=== PATIENT | female | born 1990 | race African-American/Black ===

== ENCOUNTER 2023-07-30 21:27 | Emergency (ER) | payer OTHER, SELFPAY ==
[2023-07-30 22:22] VITALS: BP 117/76; PULSE 73; RESP 16; TEMP 37.3; O2SAT 100; BMI 30.2
== END 2023-07-31 01:12 | disposition left against medical advice (07) ==
LOC: HO.ED 07-31 01:12
PROVIDERS: Emergency Provider Emergency Medicine; PCP Pediatrics
DX: Z04.1 Encounter for examination and observation following transport accident (principal); R51.9 Headache, unspecified; M54.50 Low back pain, unspecified
CPT/HCPCS: 99281

== ENCOUNTER 2023-08-01 11:47 | Emergency (ER) | payer OTHER, SELFPAY ==
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
[2023-08-01 11:59] VITALS: BP 142/83; PULSE 55; RESP 18; TEMP 36.9; O2SAT 99; BMI 29.8
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
[2023-08-01] MEDS: Acetaminophen 325 MG TABLET 975 MG PO (19:55)
[2023-08-01 22:16] VITALS: BP 125/80; PULSE 64; RESP 20; TEMP 37.2; O2SAT 99
[2023-08-01 23:08] VITALS: BP 125/80; PULSE 64; RESP 20; TEMP 37.2; O2SAT 99
== END 2023-08-01 23:08 | disposition home or self-care (01) ==
PROVIDERS: Emergency Provider Emergency Medicine Emergency Medical Services
DX: S39.92XA Unspecified injury of lower back, initial encounter (principal); R51.9 Headache, unspecified; M54.2 Cervicalgia; V43.62XA Car passenger injured in collision with other type car in traffic accident, initial encounter; Y93.9 Activity, unspecified; Y92.410 Unspecified street and highway as the place of occurrence of the external cause; Y99.8 Other external cause status
CPT/HCPCS: 70450; 72100; 72125; 99283; 99284

== ENCOUNTER 2023-12-15 10:46 | Outpatient (REF) | payer OTHER, SELFPAY ==
[2023-12-15 15:40] LABS: Bacterial Vaginosis PCR POSITIVE (Negative); Candida Group PCR NOT DETECTED (Not Detect); Candida glab krusei PCR NOT DETECTED (Not Detect); Trichomonas vaginalis PCR NOT DETECTED (Not Detect)
== END 2023-12-15 10:47 | disposition home or self-care (01) ==
LOC: HO.LAB 10:46
PROVIDERS: Visit Provider Physician Assistant
DX: R39.15 Urgency of urination (principal); N89.8 Other specified noninflammatory disorders of vagina
CPT/HCPCS: 0352U; 87086; 99212

== ENCOUNTER 2023-12-15 10:46 | Outpatient (AMB) | payer OTHER, SELFPAY ==
--- NOTE | 2023-12-15 10:52 | MHC.OFFWIV ---
Intake Vital Signs 12/15/23 10:57 Height 5 ft 1 in Weight 160 lb BMI 30.2 BP 112/78 Blood Pressure Location Rt brachial Position Sitting Pulse 76 Pulse Source Pulse Oximeter Temp 98.7 F Temp Source Oral Pulse Oximetry (%) 98 Oxygen Delivery Method Room Air Intake Visit Reasons: EP-UTI Intake Note: Patient here for burning when urinating, foul smell of urine, slight discharge which has been going on for a few days. Is last menstrual period known: Yes Last menstrual period: 12/01/23 Allergies peach [PEACHES] Allergy (Unknown, Verified 12/15/23 11:00) RASH Penicillins [PENICILLINS] Allergy (Unknown, Verified 12/15/23 11:00) YEAST INFECTION Do you need a note to return to daycare/school/sports/work: No HPI HPI Comments History of Present Illness Details Patient is a 33-year-old female complaining of multiple issues. She states she has foul-smelling urine, increased urgency of urination, white discharge and right sided flank pain that kept her awake last night. She tells me her menstrual cycle ended on December 04 and that is when her symptoms started. She tells me that she has not been sexually active since June and when she was sexually active, she always used a condom. She tells me she is probably only had sexual relations 3 or 4 times this year. She denies burning with urination, fevers, history of kidney stones, blood in her urine, chunky discharge or foul smelling discharge. [facility] Female Reproductive History Menstrual Date of last menstrual period: 12/01/23 Review of Systems Const All systems reviewed & are unremarkable except as noted in HPI and below Physical Exam Vital Signs: Last Vital Signs Temp 98.7 F 12/15/23 10:57 Pulse 76 12/15/23 10:57 BP 112/78 12/15/23 10:57 Pulse Ox 98 12/15/23 10:57 Oxygen Delivery Method Room Air 12/15/23 10:57 BMI result Body Mass Index 30.2 Const General: cooperative, healthy appearing, comfortable, no acute distress and well developed Orientation/consciousness: patient oriented x3 Limitations: no limitations HEENT Head: Yes normal to inspection Ears: hearing grossly normal bilaterally General nose exam: Normal external nose present Face and sinus: Yes normal facial exam Eyes General: appearance normal, both eyes and all related structures Neck Neck: Yes normal visual inspection and Yes full ROM Resp Effort & Inspection: normal respiratory effort and able to speak in complete sentences Skin General skin exam: no rashes or lesions noted Neuro General: patient oriented x3 Extrem General: Yes normal to inspection Assessment & Plan Assessment & Plan (1) Urgency of urination: Code(s): R39.15 - Urgency of urination Plan: UA negative for infection but positive for blood, with right sided flank pain, + CVA tenderness right side, recommended patient go to the emergency room for a kidney stone rule out. Called [facility] ED with expect. With vaginal discharge, sent bacterial vaginosis panel and a urine culture, we will hold off on prescribing antibiotics until both of these result. (2) Vaginal discharge: Code(s): N89.8 - Other specified noninflammatory disorders of vagina Plan: see above Plan See above Orders: Orders Urine Culture Today R39.15 - Urgency of urination Bacterial Vaginosis Panel Today N89.8 - Other specified noninflammatory disorders of vagina Coding Level of Care Code Est Pt Level 5 (07182) Diagnoses Urgency of urination R39.15 Vaginal discharge N89.8
[2023-12-15 10:57] VITALS: BP 112/78; PULSE 76; TEMP 37.1; O2SAT 98; BMI 30.2
== END 2023-12-15 11:45 | disposition home or self-care (01) ==
PROVIDERS: Visit Provider Physician Assistant
DX: R39.15 Urgency of urination (principal); N89.8 Other specified noninflammatory disorders of vagina

== ENCOUNTER 2024-10-11 13:42 | Outpatient (AMB) | payer OTHER, SELFPAY ==
--- OUTSIDE RECORDS SUMMARY | 2024-10-09 11:03 | XMS_ITS | Encounter Summary ---
Author Organization [facility] Address [address] [facility] [address] [place] [phone] Phone Care Team Providers Care Image Scientist Name Role Phone Giovani Leblanc MD Primary Care Provider [phone] Reason for Visit * Reason Comments Back Pain Shortness of Breath Encounter Details Date Type Department Care Team ([facility] Contact Info) Description 10/09/2024 11:03 AM EDT - 10/09/2024 1:23 PM EDT Emergency [facility] [address] [place] [address] Manoj Gomez MD [address] [place] [address] [email or web address] Discharge Disposition: Home or Self Care Social History Tobacco Use Types Packs/Day Years Used Date Smoking Tobacco: Never Assessed Education Answer Date Recorded Are you interested in more education? Not on john e 10/09/2024 Are you concerned about learning? Not on file 10/09/2024 No 10/09/2024 No 10/09/2024 Food Answer Date Recorded Within the past 6 months we worried whether our food would run out before we got money to buy more. Never True 10/09/2024 Within the past 6 months the food we bought just didn't last and we didn't have enough money to get more. Never True Residential Stability Answer Date Recor ded What is your housing situation today? I have jesse sing 10/09/2024 How many times have you move d in the past 12 months? Zero (I did not move) 10/09/2024 Paying for Meds Answer Date Recorded Do you have trouble paying for medicines? No 10/09/2024 Paying Utility Bills Answer Date Record ed Do you have trouble paying your heating or elect ricity bill? No 10/09/2024 Transportation Answer Date Recorded Has the lack of transportati on kept you from medical appointments or from getting medications? No 10/09/2024 Digital Access Answer Date Recorded No 10/09/2024 Yes 10/09/2024 Do you have reliable internet access at home? Ye s 10/09/2024 Do you have a device (e.g., phone, tablet, computer) with a working camera? Yes 10/09/2024 Intimate Partner Violence Answer Date R ecorded Are you denied basic needs s uch as food, clothing, or medical care? No 10/09/2024 In the past 12 months have y ou been in a relationship with a person who hurts, threatens, or tries to control you? No 10/09/2024 Are you denied basic needs s uch as food, clothing, or medical care? No 10/09/2024 In the past 12 months have y ou been in a relationship with a person who hurts, threatens, or tries to control you? No 10/09/2024 Comments Unknown Sex and Gender Information Value Date Recorded Sex Assigned at Not on file Legal Sex Female 9:42 AM EDT Gender Identity Not on file Sexual Orientation Not on file documented as of this encounter Last Filed Vital Signs Vital Sign Reading Time Taken Comments Blood Pressure 117/78 10/09/2024 1:11 PM EDT Pulse 61 10/09/2024 1:11 PM EDT Temperature 36.2 C (97.2 F) 10/09/2024 1:11 PM EDT Respiratory Rate 18 10/09/2024 1:11 PM EDT Oxygen Saturation 100% 10/09/2024 1:11 PM EDT Inhaled Oxygen Concentration - - Weight 64 kg (141 lb) 10/09/2024 11:16 AM EDT Height 152.4 cm (5') 10/09/2024 11:16 AM EDT Body Mass Index 27.54 10/09/2024 11:16 AM EDT documented in this encounter Functional Status * Calculated C-SSRS Risk Score (Lifetime/Recent) Answer Date of Assessment Author No Risk Indicated 10/09/2024 11:20 AM EDT Lainey Roberson RN * [place] Suicide Severity Rating Scale (Screener/Recent Self-Report) Question Answer Date of Assessment Author 1. Wish to be (Past 1 Month) No 11:20 AM EDT Lainey Roberson RN 2. Non-Specific Active Suici shelley Thoughts (Past 1 Month) No 10/09/2024 11:20 AM EDT Isai Roberson RN 6. Suicidal Behavior (Lifetime) No 11:20 AM EDT Lainey Roberson RN documented as of this encounter Discharge Instructions * Discharge Instructions* Manoj Gomez MD - 10/09/2024 1:08 PM EDT Please schedule a primary care appointment as soon as possible. You may take 600 mg of ibuprofen every 6 hours for your pain. Your covid swab is still pending. You may check this in the patient portal. If you have new or worsening symptoms, or if you become concerned for any reason, go immediately to the emergency department. * Attachments The following attachments cannot be sent through Care Everywhere. * Chest Pain (Turkish) documented in this encounter Procedure Notes * Manoj Gomez MD - 10/09/2024 11:31 AM EDTAssociated Order(s): Bedside Ultrasound Procedure Bedside Ultrasound Date/Time: 10/09/2024 11:31 AM Performed by: Manoj Gomez MD Authorized by: Manoj Gomez MD Exam Type: Cardiac Transthoracic Echocardiogram Cardiac Transthoracic Echocardiogram Exam Findings & Impression: Indications: patient with chest pain Views: apical four, parasternal long, parasternal short and subxiphoid Pericardial Effusion: the pericardial space was visualized and was negative for a pericardial effusion LV Systolic Function: the heart was visualized with normal LV systolic function Overall Impression: negative Images: Images Saved: Yes Accession Number: [id number] documented in this encounter ED Notes * Lainey Roberson RN - 10/09/2024 1:23 PM EDT ED Discharge Nursing Note Pt verbalized understanding of discharge instructions and will follow up with pcp as discussed. Pt ambulated from the ED with an even steady gait, breathing equal and unlabored, NAD. * Lainey Roberson RN - 10/09/2024 11:13 AM EDT Pt BIBA from urgent care with sharp left sided pain beginning under left axilla and radiating to left chest and into left back. Pt states it began last night and has gotten progressively worse. Pt states pain in worse with movement of left arm and states she feels like she cannot take a deep breath. Pt states she feels SOB at this time because I can't breathe in deeply without severe pain . Pt seen at and sent to ED. Pt received 1000 mg IV tylenol from EMS with some relief. Pt reports 5/10 pain following meds. * Manoj Gomez MD - 10/09/2024 11:02 AM EDT Chief Complaint Chief Complaint Patient presents with Back Pain Shortness of Breath History of Present Illness The patient, Cameron Bruner,is a 34 y.o. female who presents for evaluation of Back Pain and Shortness of Breath 34 yo f, no significant pmh, here for evaluation of left sided chest pain. Exacerbated by movement and position. No fever. Pt does note mild headache. Pain started yesterday. Unless otherwise specified, I have reviewed and agree with the triage and nursing notes. ROS A ten point review of systems was negative except what was noted in the HPI. Review of Systems Past Medical History No past medical history on file. Past Surgical History No past surgical history on file. Home Medications Prior to Admission medications Not on File Allergies Allergies Allergen Reactions [place] Flavor Penicillins Pt states she gets yeast infections and significant discomfort Social and Family History Social History Tobacco Use Smoking status: Not on file Smokeless tobacco: Not on file Substance Use Topics Alcohol use: Not on file Social History Substance and Sexual Activity Drug Use Not on file No family history on file. Physical Exam Vital Signs: ED Triage Vitals [10/09/24 1116] Encounter Vitals Group BP 120/78 Systolic BP Percentile Diastolic BP Percentile Heart Rate 62 Respiratory Rate 18 Temperature 36.7 ??C (98.1 ??F) Temp Source Temporal SpO2 100 % Weight 141 lb Height 5' Head Circumference Peak Flow Pain Score Pain Loc Pain Education Exclude from Growth Chart Physical Exam Gen: well developed, no acute distress Head: Normocephalic, atraumatic. Eyes: PERRLA, EOMI. Vision grossly intact Ears: External NL, hearing grossly intact. Oropharynx: moist mucus membranes. Normal appearance Neck: Supple, Trachea midline Lungs: Clear to auscultation b/l. No wheezes, rales or rhonchi Cardiac: RRR, no murmurs, rubs or gallops. Abd: Soft, non-tender, non-distended. Back: Non-tender. No CVA tenderness Extr: NL appearance, NL Rom. No calf tenderness. Negative emeli's sign. Neuro: AAOx3, NL strength, NL sensation Skin: NL appearance, no rash or lesions Laboratory Testing Results for orders placed or performed during the hospital encounter of 10/09/24 COVID Pandemic Respiratory Viral Order (PRO) Specimen: Nasopharyngeal swab; Other Result Value Ref Range Test Ordered Rapid COVID has been ordered Specimen Source/Description NASAL SARS-CoV 2 (COVID-19) PCR Not Detected Not Detected Troponin Specimen: Blood Result Value Ref Range Troponin-T, HS Gen5 <6 0 - 9 ng/L NT-proBNP Specimen: Blood Result Value Ref Range NT-PROBNP <36 0 - 125 pg/mL Basic metabolic panel Specimen: Blood Result Value Ref Range SODIUM 139 133 - 146 mmol/L CHLORIDE 104 96 - 108 mmol/L POTASSIUM 4.1 3.3 - 5.1 mmol/L CO2 22 21 - 35 mmol/L BUN 8 6 - 19 mg/dL CREATININE 0.70 0.5 - 1.5 mg/dL GLUCOSE 92 70 - 99 mg/dL CALCIUM 9.6 8.4 - 10.3 mg/dL EGFR 115 >59 mL/min/1.73m2 ANION GAP 17 10 - 20 mmol/L CBC and differential Specimen: Blood Result Value Ref Range WBC 7.25 4.00 - 11.00 K/uL RBC 3.88 (L) 4.00 - 5.20 M/uL HGB 11.7 (L) 12.0 - 16.0 g/dL HCT 35.6 (L) 36.0 - 46.0 % PLT 253 150 - 450 K/uL MCV 91.8 80.0 - 100.0 fL MCH 30.2 27.0 - 31.0 pg MCHC 32.9 32.0 - 36.0 g/dL RDW 13.1 11.5 - 14.5 % MPV 10.0 8.4 - 12.0 fL NRBC 0.00 0.00 /100 WBCs ABSOLUTE NRBC 0.00 0.00 K/uL DIFF METHOD Auto NEUTS 69.1 48.0 - 76.0 % LYMPHS 21.0 18.0 - 41.0 % MONOS 7.2 4.0 - 11.0 % EOS 1.8 0.0 - 5.0 % BASOS 0.6 0.0 - 1.5 % Granulocytes, immature (%) 0.3 0.0 - 0.9 % ABSOLUTE NEUTS 5.02 1.92 - 7.60 K/uL ABSOLUTE LYMPHS 1.52 0.72 - 4.10 K/uL ABSOLUTE MONOS 0.52 0.16 - 1.10 K/uL ABSOLUTE EOS 0.13 0.00 - 0.50 K/uL ABSOLUTE BASOS 0.04 0.00 - 0.15 K/uL Granulocytes, immature 0.02 0.00 - 0.09 K/uL Radiology Testing XR Chest Final Result No acute abnormality. Bedside Ultrasound Final Result ED Medication from 10/09/2024 1102 to 10/09/2024 1438 Date/Time Order Dose Route Action Action by Comments 10/09/2024 1144 EDT ketorolac (TORADOL) injection 15 mg 15 mg Intravenous Given Lainey Roberson, HOWARD-- MDM Assessment and Plan: 34 yo f with chest pain. PERC negative. Not typical for acs. EKG non-ischemic. Trop is undetectable. Covid sent. US negative for pericardial effusion. Pt feeling much better with toradol. Encouraged close pcp follow up. Pt discharged in stable condition. Category 2 and 3: Independent Interpretation of Tests, Consideration of Tests, or External Discussion of Results: Labs: Laboratory studies were interpreted. ECG: EKG studies were independently interpreted. Rate: 60 Rhythm: sinus rhythm T Wave Inversions: No ST Depressions: No ST Elevations: No Other Finding(s): No prior for comparison Clinical Impressions as of 10/09/24 1438 Chest pain, unspecified type Critical Care Time: 0 minutes Clinical Impression Diagnosis Description Comment Final diagnosis Chest pain, unspecified type Chest pain, unspecified type -- Disposition: Home Manoj Gomez MD 10/09/24 1438 documented in this encounter Plan of Treatment Not on file documented as of this encounter Procedures Procedure Name Priority Date/Time Associated Diagnosis Comments COVID PANDEMIC RESPIRATORY VIRAL ORDER (PRO) STAT 10/09/2024 12:16 PM EDT CBC AND DIFFERENTIAL STAT 10/09/2024 12:06 PM EDT TROPONIN STAT 10/09/2024 12:06 PM EDT NT-PROBNP STAT 10/09/2024 12:06 PM EDT BASIC METABOLIC PANEL STAT 10/09/2024 12:06 PM EDT XR CHEST PA AND LATERAL 2 VIEWS STAT 10/09/2024 11:54 AM EDT ECG 12-LEAD STAT 10/09/2024 11:39 AM EDT US BEDSIDE Routine 10/09/2024 11:31 AM EDT documented in this encounter Results * COVID Pandemic Respiratory Viral Order (PRO) (10/09/2024 12:16 PM EDT) Test Ordered Rapid COVID has been ordered [facility] Specimen Source/Description NASAL [facility] SARS-CoV 2 (COVID-19) PCR Not Detected Not Detected [facility] Comment: SARS-CoV-2 not detected Negative results do not preclude SARS-CoV-2 infection and should not be used as the sole basis for patient management decisions. Negative results must be combined with clinical observations, patient history, and epidemiological information. Other (Nasopharyngeal swab) 10/09/2024 12:16 PM EDT 10/09/2024 1:11 PM EDT Manoj Gomez MD BODY FLUI DS AND STOOLS ORDERABLES Edited Result - Final Performing Organization Address [facility]/ZIP Co de Phone Number [address] [address] * Troponin (10/09/2024 12:06 PM EDT) Troponin-T, HS Gen5 <6 0 - 9 ng/L [facility] Blood 10/09/2024 12:0 6 PM EDT 10/09/2024 12:19 PM EDT us Manoj Gomez MD LAB BLOOD ORDERAB LES Final Result Performing Organization Address [facility]/ZIP Co de Phone Number [address] [address] * NT-proBNP (10/09/2024 12:06 PM EDT) NT-PROBNP <36 0 - 125 pg/mL [facility] Blood 10/09/2024 12:0 6 PM EDT 10/09/2024 12:19 PM EDT Manoj Gomez MD LAB BLOOD ORDERAB LES Final Result Performing Organization Address [facility]/ZIP Co de Phone Number [address] [address] * Basic metabolic panel (10/09/2024 12:06 PM EDT) SODIUM 139 133 - 146 mmol/L [facility] CHLORIDE 104 96 - 108 mmol/L [facility] POTASSIUM 4.1 3.3 - 5.1 mmol/L [facility] CO2 22 21 - 35 mmol/L [facility] BUN 8 6 - 19 mg/dL [facility] CREATININE 0.70 0.5 - 1.5 mg/dL [facility] GLUCOSE 92 70 - 99 mg/dL [facility] CALCIUM 9.6 8.4 - 10.3 mg/dL [facility] EGFR 115 >59 mL/min/1.7 3m2 [facility] Comment:Estimated glomerular filtration rate calculated using the CKD-EPI refit equation. ANION GAP 17 10 - 20 mmol/L [facility] Blood 10/09/2024 12:0 6 PM EDT 10/09/2024 12:19 PM EDT us Manoj Gomez MD LAB BLOOD ORDERAB LES Final Result Performing Organization Address City/State/[facility] Co de Phone Number [address] [address] * (ABNORMAL) CBC and differential (10/09/2024 12:06 PM EDT) WBC 7.25 4.00 - 11.00 K/uL [facility] RBC 3.88(L) 4.00 - 5.20 M/uL [facility] HGB 11.7(L) 12.0 - 16.0 g/dL [facility] HCT 35.6(L) 36.0 - 46.0 % [facility] PLT 253 150 - 450 K/uL [facility] MCV 91.8 80.0 - 100.0 [facility] MCH 30.2 27.0 - 31.0 pg [facility] MCHC 32.9 32.0 - 36.0 g/dL [facility] RDW 13.1 11.5 - 14.5 % [facility] MPV 10.0 8.4 - 12.0 [facility] NRBC 0.00 0.00 /100 WBCs [facility] ABSOLUTE NRBC 0.00 0.00 K/uL [facility] DIFF METHOD Auto [facility] NEUTS 69.1 48.0 - 76.0 % [facility] LYMPHS 21.0 18.0 - 41.0 % [facility] MONOS 7.2 4.0 - 11.0 % [facility] EOS 1.8 0.0 - 5.0 % [facility] BASOS 0.6 0.0 - 1.5 % [facility] Granulocytes, immature (%) 0.3 0.0 - 0.9 % [facility] ABSOLUTE NEUTS 5.02 1.92 - 7.60 K/uL [facility] ABSOLUTE LYMPHS 1.52 0.72 - 4.10 K/uL [facility] ABSOLUTE MONOS 0.52 0.16 - 1.10 K/uL [facility] ABSOLUTE EOS 0.13 0.00 - 0.50 K/uL [facility] ABSOLUTE BASOS 0.04 0.00 - 0.15 K/uL [facility] Granulocytes, immature 0.02 0.00 - 0.09 K/uL [facility] Blood 10/09/2024 12:0 6 PM EDT 10/09/2024 12:19 PM EDT us Manoj Gomez MD LAB BLOOD ORDERAB LES Final Result Performing Organization Address City/State/[facility] Co de Phone Number [address] [address] * XR CHEST PA AND LATERAL 2 VIEWS (10/09/2024 11:54 AM EDT) Anatomical Region Laterality Modality Chest Computed Radiogr aphy 10/09/2024 12:0 9 PM EDT Impressions 10/09/2024 12:10 PM EDT No acute abnormality. Narrative 10/09/2024 12:10 PM EDT XR CHEST PA AND LATERAL 2 VIEWS Referring clinician's provided indication for this examination in Epic: Dyspnea (Shortness of Breath) COMPARISON: None FINDINGS: Devices/Tubes/Lines: None. Lungs: No focal consolidation or pulmonary edema. Pleura: No pleural effusion or pneumothorax. Heart/Mediastinum: Normal heart and mediastinum. Bones/Soft Tissues: No significant abnormality. Procedure Note Heath Tucker Abhishek Santacruz [facility] - 10/09/2024 XR CHEST PA AND LATERAL 2 VIEWS Referring clinician's provided indication for this examination in Epic:Dyspnea (Shortness of Breath) COMPARISON: None FINDINGS: Devices/Tubes/Lines: None. Lungs: No focal consolidation or pulmonary edema. Pleura: No pleural effusion or pneumothorax. Heart/Mediastinum: Normal heart and mediastinum. Bones/Soft Tissues: No significant abnormality. IMPRESSION: No acute abnormality. us Manoj Gomez MD IMG XR CHEST F inal Result * ECG 12-LEAD (10/09/2024 11:39 AM EDT) Ventricular Rate EKG/MIN 60 BPM [facility] Atrial Rate 60 BPM [facility] NM Interval 132 ms [facility] QRS Duration 98 ms [facility] QT Interval 404 ms [facility] QTC Interval 404 ms [facility] P Reserve 57 degrees [facility] R Wave Reserve -18 degrees [facility] T Wave Reserve 25 degrees [facility] 10/09/2024 11:3 9 AM EDT 10/10/2024 11:50 AM EDT Narrative [facility] - 10/10/2024 11:50 AM EDT Normal sinus rhythm with sinus arrhythmia T wave abnormality, consider lateral ischemia Abnormal ECG No previous ECGs available Confirmed by Aime Tsai ([id number]) on 10/10/2024 11:50:54 AM us Manoj Gomez MD ECG ORDERABLES F inal Result [facility] * US BEDSIDE (10/09/2024 11:31 AM EDT) Anatomical Region Laterality Modality Ultrasound Narrative 10/09/2024 11:31 AM EDT Manoj Gomez MD 10/09/2024 1:09 PM Bedside Ultrasound Date/Time: 10/09/2024 11:31 AM Performed by: Manoj Gomez MD Authorized by: Manoj Gomez MD Exam Type: Cardiac Transthoracic Echocardiogram Cardiac Transthoracic Echocardiogram Exam Findings & Impression: Indications: patient with chest pain Views: apical four, parasternal long, parasternal short and subxiphoid Pericardial Effusion: the pericardial space was visualized and was negative for a pericardial effusion LV Systolic Function: the heart was visualized with normal LV systolic function Overall Impression: negative Images: Images Saved: Yes Accession Number: [id number] Manoj Gomez MD IMG POINT OF CARE EXAMS Final Result documented in this encounter Visit Diagnoses Diagnosis Chest pain, unspecified type- Primary documented in this encounter Administered Medications Inactive Administered Medications - up to 3 most recent administrations Medication Order MAR Action Action Date Dose Rate Site ketorolac (TORADOL) injection 15 mg 15 mg, Intravenous, Once, On Mon10/09/24 at 1145, For 1 dose Given 10/09/2024 11:44 AM EDT 15 mg sodium chloride (NS) 0.9 % syringe flush 3 mL 3 mL, Intravenous, As needed, line care, Starting on Mon10/09/24 at 1120, Per Institutional IV Line Policy. documented in this encounter Active and Recently Administered Medications Times are shown in EDT. Scheduled Medication Order 10/07/2024 10/08/2024 10/09/2024 ketorolac (TORADOL) injection 15 mg (COMPLETED) 15 mg, Intravenous, Once, On Mon10/09/24 at 1145, For 1 dose 1144 (Given - Provid er: Lainey Roberson RN) PRN Medication Order 10/07/2024 10/08/2024 10/09/2024 sodium chloride (NS) 0.9 % syringe flush 3 mL 3 mL, Intravenous, As needed, line care, Starting on Mon10/09/24 at 1120, Per Institutional IV Line Policy. documented in this encounter Additional Health Concerns Infection Onset Date Last Indicated Resolved Time CoV-Risk 10/09/2024 10/09/2024 documented as of this encounter Care Teams Image Scientist Relationship Specialty Start Date End Date Giovani Leblanc MD [address] [place] [address] [place] [phone] (work) PCP - General Internal Medicine 10/09/24 documented as of this encounter Additional Source Comments The information contained in this document represents components of the legal health record. It is not the complete legal health record.[facility]
--- OUTSIDE RECORDS SUMMARY | 2024-10-11 13:45 | XMS_ITS ---
Author Name [facility] Organization Unknown Care Team Organization Name Specialty Phone Email Start Date End Da te [facility] Primary Care 12/28/2021 10/09/19 24
--- OUTSIDE RECORDS SUMMARY | 2024-10-11 13:46 | XMS_ITS | Patient Health Record ---
Author Organization Sae Roberson [facility] Address [address] [id number] [place], [place] [id number] Care Team Providers Care Binding Dyer Name Role Phone Crystal Craft Unavailable [phone] Allergies Allergen (clinical drug ingredient) Drug/Non Drug Allergy documented on EMR Reaction Allergy Type Onset Date Status Information temporarily unavailable peaches rash Drug Allergy Active Reason For Referral No Information Medications Medication SIG (Take, Route, Frequency, Duration) Notes Start Date End Date Status MetroGel-Vaginal 0.75 % 1 application at bedtime Vaginal Once a day; Duration: 5 day(s) 03/01/2017 Not-Taking Diflucan 150 MG 1 tablet Orally once ; Duration: 1 dose 03/01/2017 Not-Taking Flagyl 500 mg 4 tablets Orally onc e; Duration: 1 dose 03/10/2017 Not-Taking Flagyl 500 MG 1 tablet Orally twic e a day; Duration: 7 days Not-Taking Diflucan 150 MG 1 tablet Orally Once a day; Duration: 1 dose 04/21/2015 Not-Taking NuvaRing 0.12-0.015 MG/24HR [address] for 3 weeks, then remove. After 7 day break, replace with a new ring Vaginal as directed; Duration: 30 day(s) 05/04/2010 Not-Taking Ferrous Sulfate 325 (65 Fe) MG 1 tablet Orally 3 times a day; Duration: 90 days Active 28-0.8 MG as directed Orally o nce a day; Duration: 90 days Active Erythromycin 5 MG/GM 1 application Ophth almic TID CARLITO; Duration: 10 day(s) 01/15/2018 Not-Taking Cleocin 2 % 1 applicatorful at bedtime Vaginal Once a day; Duration: 3 day(s) 10/25/2017 Not-Taki ng Amoxicillin 500 mg 1 tablet Orally ever y 8 hours Not-Taking Social History Tobacco Use: Social History Observation Description Date Details (start date - stop date) Former Smoker NA - NA Sex Assigned At : Social History Observation Description Sex Assigned At Female Smoking Question Answer Notes Are you a: former smoker How long has it been since you last smoked? 1-5 years Alcohol Screen Question Answer Notes Did you have a drink containing alcohol in the p ast year? No Points 0 Interpretation Negative Sexual History Question Answer Notes Sexually active in the past 12 months Yes With: Vaginal Prevention and/or STI Protection Metho d No Type of sexual activity Condoms STD History Yes Chlamydia No GC No Syphilis No Herpes No Other Yes Last UNPROTECTED sexual activity 05/2017 Section Notes: + smoker, occasional alcohol , + marijuana use + smoker, occasional alcohol , + marijuana use + smoker, occasional alcohol , + marijuana use + smoker, occasional alcohol , + marijuana use + smoker, occasional alcohol , + marijuana use + smoker, occasional alcohol , + marijuana use no T/A/D. + smoker, occasional alcohol , + marijuana use + smoker, occasional alcohol , + marijuana use + smoker, occasional alcohol , + marijuana use + smoker, occasional alcohol , + marijuana use + smoker, occasional alcohol , + marijuana use + smoker, occasional alcohol , + marijuana use + smoker, occasional alcohol , + marijuana use + smoker, occasional alcohol , + marijuana use + smoker, occasional alcohol , + marijuana use Plan Of Treatment Pending Test Test Name Order Date US (OB) 2ND/3RD TRIMESTER 12/27/2017 Cystic Fibrosis Profile 10/09/2017 Strep Gp B GAYLA+Rflx 02/27/2018 Insurance Providers Payer Name Payer Address Payer Phone Subscriber Number Group Number Insured Name Patient Relationship to Insured Coverage Start Date Coverage End Date Amilcar ANGEL [facility] [address] [place] [address] [id number] Cameron Bruner Self - patient is the insured Medicaid Wrap [address] [place] [address] [id number] Cameron Bruner Self - patient is the insured Medicaid [address] [place] [phone] [id number] Cameron Bruner Self - patient is the insured Medical (General) History Medical History History ICD Code No significant PMHx Surgical History Surgery Date(Month/Year) section 2009 laparoscopic salpingectomy (right ) for an ectopic 08/2013 suction D&C x 3 for ETOP Hospitalization History Reason Date(Month/Year) c-sec 2009 as above.
[2024-10-11 13:48] VITALS: BP 110/64; PULSE 60; O2SAT 99; BMI 25.9
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
== END 2024-10-11 14:55 | disposition home or self-care (01) ==
LOC: HO.HMCH 13:43
PROVIDERS: PCP Internal Medicine; Visit Provider Internal Medicine
DX: Z00.00 Encounter for general adult medical examination without abnormal findings (principal); H53.8 Other visual disturbances; R07.89 Other chest pain; M54.6 Pain in thoracic spine; K59.00 Constipation, unspecified; R63.0 Anorexia; Z12.4 Encounter for screening for malignant neoplasm of cervix

== ENCOUNTER → 2024-10-11 13:42 | Outpatient (BNVA) | payer OTHER, SELFPAY | PROVIDERS: Visit Provider Internal Medicine | DX: Z00.00 Encounter for general adult medical examination without abnormal findings (principal); H53.8 Other visual disturbances; R07.89 Other chest pain; M54.6 Pain in thoracic spine; K59.00 Constipation, unspecified; R63.0 Anorexia | CPT/HCPCS: 96127; 99385 ==

== ENCOUNTER 2024-10-17 08:27 | Outpatient (REF) | payer OTHER, SELFPAY ==
[2024-10-17 08:46] LABS: MANUAL DIFF FLAG NO
[2024-10-17 09:04] LABS: Hematocrit 35.3 % (37.0-47.0); Hemoglobin 11.5 g/dl (12.0-16.0); Imm Gran Abs Auto 0.03 X10*3/uL (0.00-0.03); Imm Gran Pct Auto 0.5 % (0.0-0.4); Lymphocytes Absolute Auto 1.8 X10*3/uL (1.2-4.9); Mean Corpuscular HGB Conc 32.6 g/dl (31.0-35.0); Mean Corpuscular Hemoglobin 29.9 pg (27.0-33.0); Mean Corpuscular Volume 91.7 fL (80.0-98.0); NRBC Abs Auto 0.000 X10*3/uL (0.0-0.012); NRBC Pct Auto 0.0 /100WBC (0.0-0.2); Platelet Count 298 X10*3/uL (160-400); Red Blood Count 3.85 X10*6/uL (4.20-5.50); White Blood Count 6.6 X10*3/uL (4.8-10.8)
--- OUTSIDE RECORDS SUMMARY | 2024-10-17 09:05 | XMS_ITS | Clinical Summary ---
Author Organization [facility] Address [address] [facility] [address] [place] [address] Phone Care Team Providers Care Garment Steamer Name Role Phone Giovani Leblanc MD Primary Care Provider [phone] Allergies Active Allergy Reactions Criticality Noted Date Comments Catron Flavor 05/27/2021 Penicillins Low 10/09/2024 Pt states she gets yeast infections and significant discomfort Medications No known medications Encounters Date Type Department Care Team Description 10/09/2024 11:35 AM EDT Ancillary Procedure [facility], [address] [address] Manoj Gomez MD 10/09/2024 11:03 AM EDT - 10/09/2024 1:23 PM EDT Emergency [facility] [address] [place] [address] Manoj Gomez MD Discharge Disposition: Home or Self Care 10/09/2024 9:50 AM EDT Office Visit [facility] at [address] [address] Sandra Krishnan NP Chest pain, unspecified type (Primary Dx) from Last 3 Months Social History Tobacco Use Types Packs/Day Years [...] your housing situation today? I have jesse mcclelland 10/09/2024 How many times have you move [...] on file Sexual Orientation Not on file Last Filed Vital Signs Vital Sign Reading [...] Mass Index 27.54 10/09/2024 11:16 AM EDT Plan of Treatment Health Maintenance Due Date Last Done Comments Adult Td,Tdap Booster 1988 DEPRESSION SCREENING 2000 SMOKING Hx and SMOKELESS TOB ACCO SCREENING 2001 HEPATITIS C SCREENING 2006 HIV ONE-TIME SCREENING (18-6 5 YEARS) 2006 PAP SMEAR 2009 COVID-19 VACCINE ( - 2023-2 5 season) 2023 SCREENING FOR DIABETES 10/10/2027 10/09/2024 HEPATITIS A VACCINES Aged Out No long er eligible based on patient's age to complete this topic HIB VACCINES Aged Out No longer eligi ble based on patient's age to complete this topic MENINGOCOCCAL VACCINES (ACWY) Aged Out No longer eligible based on patient's age to complete this topic MENINGOCOCCAL VACCINES (B) Aged Out N o longer eligible based on patient's age to complete this topic PNEUMOCOCCAL VACCINES (0-49 years) Aged Out No longer eligible based on patient's age to complete this topic Medical Devices Not on file Procedures Procedure Name Priority Date/Time Associated Diagnosis Comments COVID PANDEMIC RESPIRATORY VIRAL ORDER (PRO) STAT 10/09/2024 12:16 PM EDT TROPONIN STAT 10/09/2024 12:06 PM EDT NT-PROBNP STAT 10/09/2024 12:06 PM EDT BASIC METABOLIC PANEL STAT 10/09/2024 12:06 PM EDT CBC AND DIFFERENTIAL STAT 10/09/2024 12:06 PM EDT XR CHEST PA AND LATERAL 2 VIEWS STAT 10/09/2024 11:54 AM EDT ECG 12-LEAD STAT 10/09/2024 11:39 AM EDT US BEDSIDE Routine 10/09/2024 11:31 AM EDT from Last 3 Months Results * COVID Pandemic Respiratory Viral Order (PRO) (10/09/2024 12:16 PM EDT) Test Ordered Rapid COVID has been ordered [facility] Specimen Source/Description NASAL [facility] SARS-CoV 2 (COVID-19) PCR Not Detected Not Detected [facility] Comment: SARS-CoV-2 not detected Negative results do not preclude SARS-CoV-2 infection and should not be used as the sole basis for patient management decisions. Negative results must be combined with clinical observations, patient history, and epidemiological information. Other (Nasopharyngeal swab) 10/09/2024 12:16 PM EDT 10/09/2024 1:11 PM EDT Manoj Gomez MD BODY FLUI DS AND STOOLS ORDERABLES Edited Result - Final [address] [address] * (ABNORMAL) CBC and differential (10/09/2024 12:06 PM EDT) WBC 7.25 4.00 - 11.00 K/uL [facility] RBC 3.88(L) 4.00 - 5.20 M/uL [facility] HGB 11.7(L) 12.0 - 16.0 g/dL [facility] HCT 35.6(L) 36.0 - 46.0 % [facility] PLT 253 150 - 450 K/uL [facility] MCV 91.8 80.0 - 100.0 [facility] MCH 30.2 27.0 - 31.0 pg [facility] MCHC 32.9 32.0 - 36.0 g/dL [facility] RDW 13.1 11.5 - 14.5 % [facility] MPV 10.0 8.4 - 12.0 [facility] NRBC 0.00 0.00 /100 WBCs [facility] ABSOLUTE NRBC 0.00 0.00 K/uL [facility] DIFF METHOD Auto [facility] NEUTS 69.1 48.0 - 76.0 % [facility] LYMPHS 21.0 18.0 - 41.0 % [facility] MONOS 7.2 4.0 - 11.0 % [facility] EOS 1.8 0.0 - 5.0 % [facility] BASOS 0.6 0.0 - 1.5 % [facility] Granulocytes, immature (%) 0.3 0.0 - 0.9 % [facility] ABSOLUTE NEUTS 5.02 1.92 - 7.60 K/uL [facility] ABSOLUTE LYMPHS 1.52 0.72 - 4.10 K/uL [facility] ABSOLUTE MONOS 0.52 0.16 - 1.10 K/uL [facility] ABSOLUTE EOS 0.13 0.00 - 0.50 K/uL [facility] ABSOLUTE BASOS 0.04 0.00 - 0.15 K/uL [facility] Granulocytes, immature 0.02 0.00 - 0.09 K/uL [facility] Blood 10/09/2024 12:0 6 PM EDT 10/09/2024 12:19 PM EDT us Manoj Gomez MD LAB BLOOD ORDERAB LES Final Result [address] [address] * Troponin (10/09/2024 12:06 PM EDT) Troponin-T, HS Gen5 <6 0 - 9 ng/L [facility] Blood 10/09/2024 12:0 6 PM EDT 10/09/2024 12:19 PM EDT us Manoj Gomez MD LAB BLOOD ORDERAB LES Final Result [address] [address] * NT-proBNP (10/09/2024 12:06 PM EDT) NT-PROBNP <36 0 - 125 pg/mL [facility] Blood 10/09/2024 12:0 6 PM EDT 10/09/2024 12:19 PM EDT Manoj Gomez MD LAB BLOOD ORDERAB LES Final Result Performing Organization Address [facility] Co de Phone Number [address] [address] * Basic metabolic panel (10/09/2024 12:06 PM EDT) SODIUM 139 133 - 146 mmol/L [facility] CHLORIDE 104 96 - 108 mmol/L [facility] POTASSIUM 4.1 3.3 - 5.1 mmol/L [facility] CO2 22 21 - 35 mmol/L [facility] BUN 8 6 - 19 mg/dL [facility] CREATININE 0.70 0.5 - 1.5 mg/dL [facility] GLUCOSE 92 70 - 99 mg/dL [facility] CALCIUM 9.6 8.4 - 10.3 mg/dL [facility] EGFR 115 >59 mL/min/1.7 3m2 [facility] Comment:Estimated glomerular filtration rate calculated using the CKD-EPI refit equation. ANION GAP 17 10 - 20 mmol/L [facility] Blood 10/09/2024 12:0 6 PM EDT 10/09/2024 12:19 PM EDT Manoj Gomez MD LAB BLOOD ORDERAB LES Final Result Performing Organization Address City/[facility]/ZIP Co de Phone Number [address] [address] * XR CHEST PA AND LATERAL 2 VIEWS (10/09/2024 11:54 AM EDT) Anatomical Region Laterality Modality Chest Computed Radiogr aphy 10/09/2024 12:0 9 PM EDT Impressions 10/09/2024 12:10 PM EDT No acute abnormality. Narrative 10/09/2024 12:10 PM EDT XR CHEST PA AND LATERAL 2 VIEWS Referring clinician's provided indication for this examination in [facility]: Dyspnea (Shortness of Breath) COMPARISON: None FINDINGS: Devices/Tubes/Lines: None. Lungs: No focal consolidation or pulmonary edema. Pleura: No pleural effusion or pneumothorax. Heart/Mediastinum: Normal heart and mediastinum. Bones/Soft Tissues: No significant abnormality. Procedure Note [facility] - 10/09/2024 XR CHEST PA AND LATERAL 2 VIEWS Referring clinician's provided indication for this examination in [facility]:Dyspnea (Shortness of Breath) COMPARISON: None FINDINGS: Devices/Tubes/Lines: None. Lungs: No focal consolidation or pulmonary edema. Pleura: No pleural effusion or pneumothorax. Heart/Mediastinum: Normal heart and mediastinum. Bones/Soft Tissues: No significant abnormality. IMPRESSION: No acute abnormality. us Manoj Gomez MD IMG XR CHEST F inal Result * ECG 12-LEAD (10/09/2024 11:39 AM EDT) Ventricular Rate EKG/MIN 60 BPM [facility] Atrial Rate 60 BPM [facility] MN Interval 132 ms [facility] QRS Duration 98 ms [facility] QT Interval 404 ms [facility] QTC Interval 404 ms [facility] P [place] 57 degrees [facility] R Wave [place] -18 degrees [facility] T Wave [place] 25 degrees [facility] 10/09/2024 11:3 9 AM [...] negative Images: Images Saved: Yes Accession Number: [id number] Manoj Gomez MD IMG POINT OF CARE EXAMS Final Result from Last 3 Months Additional Health Concerns Infection Onset Date Last Indicated CoV-Risk 10/09/2024 10/09/[address] [place] [address] [address] [place] [address] [facility] [place] [address] [place] [address] ACO [facility] ACO Care Teams Garment Steamer Relationship Specialty Start Date End Date Giovani Leblanc MD [address] [place] [address] [place] [address] PCP - General Internal Medicine 10/09/24 Additional Source Comments The information contained in this document represents components of the legal health record. It is not the complete legal health record.[facility]
--- OUTSIDE RECORDS SUMMARY | 2024-10-17 09:05 | XMS_ITS | Patient Health Record ---
Author Organization [facility] Address [address] [id number] [place], [place] [id number] Care Team Providers Care Dental Office Receptionist Name Role Phone Crystal Craft Unavailable [phone] Allergies Allergen (clinical drug ingredient) Drug/Non Drug [...] Start Date Coverage End Date [facility]ilcar [facility] [place] [place] [address] [place] [address] [phone] [id number] Cameron Bruner Self - patient is the insured Medicaid Wrap [address] [place] [address] [id number] Cameron Bruner Self - patient is the insured Medicaid [address] [place] [phone] [id number] Cameron Bruner Self - patient is the insured Medical (General) History Medical History History ICD Code No significant PMHx Surgical History Surgery Date(Month/Year) section 2009 laparoscopic salpingectomy (right ) for an ectopic 08/2013 suction D&C x 3 for ETOP Hospitalization History Reason Date(Month/Year) c-sec 2009 as above.
[2024-10-17 09:28] LABS: Appearance Urine Clear; Glucose Urine UA Negative (Negative); PH 5.5 (5.0-9.0); Specific Gravity - Urine 1.025 (1.005-1.025); UMIC TRIGGER UACC YES
[2024-10-17 09:33] LABS: Alanine Aminotransferase 13 U/L (0-31); Albumin Level 4.6 g/dL (3.5-5.0); Alkaline Phosphatase 51 U/L (39-117); Anion Gap 12 (12-20); Aspartate Amino Transferase 27 U/L (5-31); Blood Urea Nitrogen 11 mg/dL (9-16); Calcium 9.3 mg/dL (8.4-10.2); Carbon Dioxide 25 mmol/L (22-29); Chloride 106 mmol/L (96-108); Cholesterol 220 mg/dL (<200); Estimated Glomerular Filt Rate > 60; HDL Cholesterol 54 mg/dL (>40); Potassium 3.7 mmol/L (3.3-5.1); Sodium 139 mmol/L (135-145); Total Protein 7.9 g/dL (6.5-8.0); Triglycerides 78 mg/dL (<150)
[2024-10-23 11:59] LABS: Anti Nuclear Antibody Screen NEGATIVE (NEGATIVE)
== END 2024-10-17 08:28 | disposition home or self-care (01) ==
LOC: HO.LAB 08:27
PROVIDERS: PCP Internal Medicine; Visit Provider Internal Medicine
DX: R07.89 Other chest pain (principal); E78.00 Pure hypercholesterolemia, unspecified; D64.9 Anemia, unspecified; M54.6 Pain in thoracic spine; M25.50 Pain in unspecified joint; R30.0 Dysuria
CPT/HCPCS: 36415; 80053; 80061; 81001; 84443; 85025; 85652; 86038; 86140; 86431

== ENCOUNTER 2024-10-30 11:49 | Outpatient (REF) | payer OTHER, SELFPAY ==
[2024-10-31 08:10] LABS: HBc Num1 0.10 S/CO (0.00-0.79); HIV Num 1 0.06 S/CO (0.00-0.99); ~HepC Num1 0.11 S/CO (0.00-0.79); ~Hepatitis C Antibody Nonreactive (Nonreactive)
[2024-10-31 08:24] LABS: Syphilis Screen Nonreactive (Nonreactive)
== END 2024-10-30 11:50 | disposition home or self-care (01) ==
LOC: HO.LAB 11:49
PROVIDERS: PCP Internal Medicine; Visit Provider Advanced Practice Midwife
DX: Z01.419 Encounter for gynecological examination (general) (routine) without abnormal findings (principal); Z01.84 Encounter for antibody response examination; Z11.59 Encounter for screening for other viral diseases; Z11.4 Encounter for screening for human immunodeficiency virus [HIV]; Z11.3 Encounter for screening for infections with a predominantly sexual mode of transmission; Z11.8 Encounter for screening for other infectious and parasitic diseases; Z20.2 Contact with and (suspected) exposure to infections with a predominantly sexual mode of transmission
CPT/HCPCS: 36415; 81515; 86704; 86780; 86803; 87389; 87491; 87591; 87626; 88175; 99385

== ENCOUNTER 2024-10-30 11:49 | Outpatient (AMB) | payer OTHER, SELFPAY ==
--- NOTE | 2024-10-30 11:51 | MHC.OFFVIS ---
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 and would want std swabs 05/2021 neg +hpv per NEPA Information Interpreted: non-clinical & clinical Vegetable Handler: Vegetable Handler Present (Sapna) Accompanied by: Self / Same As Patient Allergies peach (PEACHES) Allergy (Unknown, Verified 10/30/24 11:57) RASH Penicillins (PENICILLINS) Allergy (Unknown, Verified 10/30/24 11:57) YEAST INFECTION Medication List - Last Reconciled 10/30/24 by Dorie Nicholson LPN fluconazole 150 mg PO Q3D 2 doses lidocaine 5% 1 patch topical DAILY PRN 30 days polyethylene glycol 3350 (Miralax) 17 grams PO DAILY 30 days sennosides (senna) 8.6 mg PO BID PRN 30 days trazodone 50 mg PO BEDTIME PRN 30 days Is last menstrual period known: Yes Last menstrual period: 10/18/24 Post menopausal: No Patient : No Do you need a note to return to daycare/school/sports/work: Yes HPI Comments Details: Patient is a premenopausal woman presenting for new patient annual examination. 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 Regular monthly menses. She tries to eat healthy and stays active with exercise. Denies family history of breast, ovarian or colon cancer. Last pap smear 2021, HPV positive, at [place] no records available. 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 Current occupational exposures/hazards: No Cognitive needs: No Hearing needs: No Vision needs: Yes Female Reproductive History Menstrual Age of Menarche: 12 Date of last menstrual period: 10/18/24 control method: condoms Total pregnancies: 2 Number of Living Children: 2 Date of last pap smear: 10/30/21 History of abnormal pap smear: Yes (positive HPV) History of STI: No Review of Systems Const All systems reviewed & are unremarkable except as noted in HPI and below Reports as per HPI Eyes Reports no additional complaints ENT Reports no additional complaints Card Reports no additional complaints Resp Reports no additional complaints GI Reports as per HPI and Reports no additional complaints Reports as per HPI Musc Reports no additional complaints Skin/Breast Reports as per HPI Neuro Reports no additional complaints Psych Reports no additional complaints Endo Reports no additional complaints Albaro/Lymph Reports no additional complaints Aller/Immun Reports no additional complaints Physical Exam Vital Signs: Last Vital Signs BP 102/62 10/30/24 12:02 BMI result Body Mass Index 25.7 Const General: cooperative, healthy appearing, no acute distress, well developed and alert Orientation/consciousness: patient oriented x3 HEENT Head: Yes normal to inspection Eyes General: appearance normal, both eyes and all related structures Neck Neck: Yes normal visual inspection Thyroid: Thyroid normal Chest Chest palpation & inspection: normal inspection of the chest and other (no puckering, dimpling, peau de orange, retraction, discharge, masses) Breast/axilla inspection: normal inspection of the breasts Breast/axilla palpation: normal palpation of the breasts Resp Effort & Inspection: normal respiratory effort GI Inspection: Yes normal to inspection Palpation (GI): Soft to palpation Rectal Exam - Female: deferred General: Yes bladder normal to palpation External Female Exam: normal external appearance and normal appearance of the urethra Speculum Exam - Vagina: normal appearance of the vagina, normal palpation and normal vaginal discharge Speculum Exam - Cervix: normal appearance of the cervix and normal palpation Bimanual exam- vagina & uterus: normal bimanual exam, normal palpation, uterine size normal, bladder normal to palpation, normal palpation and non-tender Bimanual Exam- Adnexa, other: no masses Skin General skin exam: no rashes or lesions noted Rashes: no rashes Neuro General: patient oriented x3 Cognition (Neuro): normal cognition Extrem General: Yes normal to inspection Psych Attitude: cooperative Thought process: Normal thought process present Assessment & Plan Assessment & Plan (1) Encounter for well woman exam with routine gynecological exam: Code(s): Z01.419 - Encounter for gynecological examination (general) (routine) without abnormal findings Category: Medical Plan: Discussed: Current recommendations for pap smears per ASCCP guidelines. GC chlamydia and BV panel obtained. Await results for final plan of care. Lab work ordered, instructed to register and proceed to lab. Breast awareness and periodic breast exams. Maintain a healthy lifestyle including a well balanced diet and routine exercise. Use condoms for STI and prevention. Patient verbalizes understanding and agrees to the plan of care. She was given opportunity to ask questions and all questions were answered to the best of my ability. 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 This note is constructed using voice recognition software. While every effort has been made to ensure accuracy, optical laboratory technician errors may have been included. (2) Cervical cancer screening: Code(s): Z12.4 - Encounter for screening for malignant neoplasm of cervix Category: Medical Plan Pap smear obtained, await results for final plan of care. Sign release of Pap records from [place]. Orders: Orders HIV Ab/Ag Today Z20.2 - Contact with and (suspected) exposure to infections with a predominantly sexual mode of transmission Hepatitis C Antibody Reflex Today Z20.2 - Contact with and (suspected) exposure to infections with a predominantly sexual mode of transmission Hepatitis B Core Antibody Today Z20.2 - Contact with and (suspected) exposure to infections with a predominantly sexual mode of transmission Syphilis Screen Today Z20.2 - Contact with and (suspected) exposure to infections with a predominantly sexual mode of transmission CT NG by PCR Vag/Cerv Today Z20.2 - Contact with and (suspected) exposure to infections with a predominantly sexual mode of transmission Pap Smear Today Z01.419 - Encounter for gynecological examination (general) (routine) without abnormal findings Bacterial Vaginosis Panel Today Z20.2 - Contact with and (suspected) exposure to infections with a predominantly sexual mode of transmission HPV High risk Today Z01.419 - Encounter for gynecological examination (general) (routine) without abnormal findings Coding Level of Care Code New Pt Prev Care 18-39yr([address] Diagnoses Encounter for well woman exam with routine gynecological exam Z01.419 Cervical cancer screening Z12.4
[2024-10-30 12:02] VITALS: BP 102/62; BMI 25.7
--- OUTSIDE RECORDS SUMMARY | 2024-10-30 15:02 | XMS_ITS | Patient Health Record ---
Author Organization [facility] Address [address] [id number] [place], [place] [id number] Care Team Providers Care Welcome Center Agent Name Role Phone Crystal Craft Unavailable [phone] Allergies Allergen (clinical drug ingredient) Drug/Non Drug [...] alcohol , + marijuana use no T/A/D. Plan Of Treatment Pending Test Test Name Order Date US (OB) 2ND/3RD TRIMESTER 12/27/2017 Cystic Fibrosis Profile 10/09/2017 Strep Gp B GAYLA+Rflx 02/27/2018 Insurance Providers Payer Name Payer Address Payer Phone Subscriber Number Group Number Insured Name Patient Relationship to Insured Coverage Start Date Coverage End Date Amilcar ANGEL [facility] [place] [place] [address] [place] [id number] Cameron Bruner Self - patient is the insured Medicaid Wrap [address] [place] [address] [id number] Cameron Bruner Self - patient is the insured Medicaid [address] [place] [phone] [id number] Cameron Bruner Self - patient is the insured Medical (General) History Medical History History ICD Code No significant PMHx Surgical History Surgery Date(Month/Year) section 2009 laparoscopic salpingectomy (right ) for an ectopic 08/2013 suction D&C x 3 for ETOP Hospitalization History Reason Date(Month/Year) c-sec 2009 as above.
== END 2024-10-30 13:18 | disposition home or self-care (01) ==
LOC: HO.HWS 11:49
PROVIDERS: PCP Internal Medicine; Visit Provider Advanced Practice Midwife
DX: Z01.419 Encounter for gynecological examination (general) (routine) without abnormal findings (principal)
CPT/HCPCS: 99385; 99459

== ENCOUNTER 2024-10-30 12:52 | Outpatient (REF) | payer OTHER, SELFPAY ==
--- OUTSIDE RECORDS SUMMARY | 2024-10-30 15:59 | XMS_ITS | Encounter Summary ---
Author Organization [facility] Address [address] [place] [address] Care Team Providers Care Banquet Stewardess Name Role Phone Yahaira Caballero MD Primary Care Provider [phone] Formerly [facility], [facility], Pcp Primary Care Provider Unavailabl e Reason for Visit * Reason Onset Date Comments [place] [facility] 01/26/2022 Encounter Details Date Type Department Care Team Description 01/26/2022 Telephone Internal Medicine - [place] [address] [facility], [address] [place], [place] [id number] Yahaira Caballero MD [address] [place] [phone] [place] [facility] Social History Tobacco Use Types Packs/Day Years Used Date Smoking Tobacco: Never Smokeless Tobacco: Never Alcohol Use Standard Drinks/Week Comments Yes 0 (1 standard drink = 0.6 oz pur e alcohol) occassionally Sex Assigned at Date Recorded Not on file Job Start Date Occupation Industry Not on file Not on file Not on file documented as of this encounter Miscellaneous Notes * Telephone Encounter - jM Allen RN - 01/26/2022 1:45 PM EST Call placed to patient's home/mobile phone listed, . Line does not ring, message states the service you are attempting to use has been restricted or is unavailable . * Telephone Encounter - Karyn Kincaid - 01/26/2022 8:26 AM EST Symptoms patient is presenting: The patient states for 2 days her eye are crusted over. For ALL patients calling to schedule any appointment (routine, sick visit, follow up, consult, etc.) in the outpatient setting please ask the following questions: ?? Do you have fever of higher than 101, sore throat with difficulty swallowing or severe shortnessof breath? NO If YES to any of these above symptoms, send a message to triage and do not book. Red dot. If no, an audio or video visit should be booked. ?? Have you had close contact with someone with Coronavirus in the last 14 days? NO ?? Have you traveled abroad? NO ?? Have you traveled recently to another state outside of [place], [place], [place], [place], [place], [place], [place]? NO o If yes, did you quarantine for 14 days or have a negative covid test? NO If yes to any of the above, patient is not to be scheduled in office until after 14 day quarantine or negative covid test. If pain or injury related was it due to an accident at work or from a motor vehicle accident? NO If yes, gather 3rd green party insurance information Date of accident/Injury: How long has patient had these symptoms?: 2 days PCP: Yahaira Caballero Payor: [facility] FFS / Plan: /[facility]/$0/20/F/HMO / Product Type: MEDICAID [id number] documented in this encounter Plan of Treatment Not on file documented as of this encounter Visit Diagnoses Not on filedocumented in this encounter Care Teams Banquet Stewardess Relationship Specialty Start Date End Date Yahaira Caballero MD PCP - General Internal Medicine 10/28/21 04/21/22 Formerly [facility], [facility], Pcp PCP - General Internal Medicine 04/22/22 documented as of this encounter
--- OUTSIDE RECORDS SUMMARY | 2024-10-30 15:59 | XMS_ITS | Encounter Summary ---
Author Organization [facility] Address [address] [place] [address] Care Team Providers Care Agency Service Representative Name Role Phone Community, Pcp Primary Care Provider Unavailabl e Encounter Details Date Type Department Care Team Description 08/15/2022 Release of Information Medical Records [address] [place] [id number] Abstract, Provider Social History Tobacco Use Types Packs/Day Years Used Date Smoking Tobacco: Never Smokeless Tobacco: Never Alcohol Use Standard Drinks/Week Comments Yes 0 (1 standard drink = 0.6 oz pur e alcohol) occassionally Sex Assigned at Date Recorded Not on file Job Start Date Occupation Industry Not on file Not on file Not on file documented as of this encounter Plan of Treatment Not on file documented as of this encounter Visit Diagnoses Not on filedocumented in this encounter Care Teams Agency Service Representative Relationship Specialty Start Date End Date Community, Pcp PCP - General Internal Medicine 04/22/22 documented as of this encounter
--- OUTSIDE RECORDS SUMMARY | 2024-10-30 15:59 | XMS_ITS | Encounter Summary ---
Author Organization [facility] Address [address] [place] [address] Care Team Providers Care Mold Release Worker Name Role Phone Yahaira Caballero MD Primary Care Provider [phone] [facility], Pcp Primary Care Provider Unavailabl e Reason for Visit * Reason Onset Date Comments Nurse Triage Follow-up 04/12/2022 Encounter Details Date Type Department Care Team Description 04/12/2022 Telephone Internal Medicine - [address], [address] [place], [place] [id number] Yahaira Caballero MD [address] [place] [phone] Nurse Triage Follow-up Social History Tobacco Use Types Packs/Day Years Used Date Smoking Tobacco: Never Smokeless Tobacco: Never Alcohol Use Standard Drinks/Week Comments Yes 0 (1 standard drink = 0.6 oz pur e alcohol) occassionally Sex Assigned at Date Recorded Not on file Job Start Date Occupation Industry Not on file Not on file Not on file COVID-19 Exposure Response Date Recorded In the last 10 days, have kevyn vanegas been in contact with someone who was confirmed or suspected to have Coronavirus/COVID-19? No / Unsure 04/14/2022 11:15 AM EST documented as of this encounter Miscellaneous Notes * Telephone Encounter - Lali Gale R.N. - 04/13/2022 9:28 AM EST Spoke with pt- c/o redness, pain and small lump noted on her breast near her armpit. Appointment scheduled. * Telephone Encounter - Deyanira Dorantes L.P.N. - 04/13/2022 9:12 AM EST I spoke with pt she states she did not want to go to [place] [facility] she states she go directly to admin to book he kids apt She states [facility] is treating her like a mouse in a maze She states the pt services person sucks as well she wanted an higher up linux administrator than people here in the [place] She states the front staff is very unprofessional she is not happy with the care she had with dr Jesus Pt states she is looking for a new MD out of [place] Message to [place] decorator lighting fixtures and to pt services MAILROOM MANAGER please advise on breast lump * Telephone Encounter - Diane Andre - 04/12/2022 4:59 PM EST Pt wants a call back reprted having a lump on right breast and is painful contact # [phone] documented in this encounter Plan of Treatment Not on file documented as of this encounter Visit Diagnoses Not on filedocumented in this encounter Care Teams Mold Release Worker Relationship Specialty Start Date End Date Yahaira Caballero MD PCP - General Internal Medicine 10/28/21 04/21/22 [facility], Pcp PCP - General Internal Medicine 04/22/22 documented as of this encounter
[2024-10-30 22:26] LABS: Bacterial Vaginosis PCR NEGATIVE (Negative); Candida Group PCR NOT DETECTED (Not Detect); Candida glab krusei PCR NOT DETECTED (Not Detect); Trichomonas vaginalis PCR NOT DETECTED (Not Detect)
[2024-10-30 23:33] LABS: CT PCR NOT DETECTED (Not Detect.); NG PCR NOT DETECTED (Not Detect.)
== END 2024-10-30 12:53 | disposition home or self-care (01) ==
LOC: HO.LNP 12:52
PROVIDERS: Visit Provider Advanced Practice Midwife
DX: Z13.89 Encounter for screening for other disorder (principal)
CPT/HCPCS: 81515; 87491; 87591; 87626; 88175

== ENCOUNTER 2024-12-30 08:46 | Outpatient (AMB) | payer OTHER, SELFPAY ==
[2024-12-30 08:53] VITALS: BP 118/82; TEMP 36.3; O2SAT 99; BMI 24.7
--- NOTE | 2024-12-30 08:53 | A.OFFPC_ITS ---
Vital Signs 12/30/24 08:53 Height 5 ft 1 in Weight 131 lb BMI 24.7 BP 118/82 Blood Pressure Location Lt brachial Position Sitting Pulse Source Pulse Oximeter Temp 97.3 F Temp Source Temporal Artery Scan Pulse Oximetry (%) 99 Oxygen Delivery Method Room Air Intake Visit Reasons: weight loss lossed 8 pounds in 2 months Warper Tender Required: No Accompanied by: Self / Same As Patient Allergies peach (PEACHES) Allergy (Unknown, Verified 12/30/24 09:14) RASH Penicillins (PENICILLINS) Allergy (Unknown, Verified 12/30/24 09:14) YEAST INFECTION Medication List - Last Reconciled 12/30/24 by QUAN Brown lidocaine 5% 1 patch topical DAILY PRN 30 days sennosides (senna) 8.6 mg PO BID PRN 30 days Tobacco use date assessed: 10/11/24 Dental Screening Dental Screen Date: 12/30/24 Did you have a dental visit in the last 12 months?: No Did you have a dental problem in the last 6 months where you did not have access to dental care?: No Was dental information given to patient?: No HPI weight loss lossed 8 pounds in 2 months HPI Details The patient is a 34-year-old female presenting for evaluation of significant unintentional weight loss. She reports losing approximately 8 pounds since her last visit at the end of September, with her weight decreasing from 137 to 131 pounds, noted on records, informed the patient that she technically only lost 6 lbs. The weight loss was unintentional and occurred without the use of diet medications. Although she has recently had an increased appetite, she has been unable to maintain her weight, noting fluctuations and a feeling of weakness that led her to stop exercising. The patient also reports intermittent pain in the right upper quadrant of her abdomen, which is exacerbated by eating, particularly bread and greasy foods. She denies any associated heartburn. 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 She mentions having white patches in the corner of her eyes that have not resolved with baby oil, and a persistent cyst for a couple of weeks. 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 1. Little interest or pleasure in doing things: more than half the days 2. Feeling down, depressed, or hopeless: not at all 3. Trouble falling or staying asleep, or sleeping too much: nearly every day 4. Feeling tired or having little energy: nearly every day 5. Poor appetite or overeating: nearly every day 6. Feeling bad about yourself - or that you are a failure or have let yourself or your family down: not at all 7. Trouble concentrating on things, such as reading the newspaper or watching television: not at all 8. Moving or speaking so slowly that other people could have noticed. Or the opposite - being so fidgety or restless that you have been moving around a lot more than usual: not at all 9. Thoughts that you would be better off or of hurting yourself in some way: not at all Total score: 11 Depression Screening Interpretation: Positive Depression Screening Follow-up: Follow-up Visit Requested Depression Screening Done: Yes 10957 - PHQ-9 Billing: Yes Source: Developed by Drs. Justin Mendez, Alma Peterson, Raji Clarke and colleagues, with an educational zaid from [employer]. Thrive Questionnaire Date Thrive assessed: 10/11/24 I am a: Patient What is your living situation today?: I have a steady place to live Within the past 12 months, did the food you bought not last and you didn't have the money to get more?: I choose not to answer this question Within the past 12 months, did you worry whether your food would run out before you got money to buy more?: I choose not to answer this question Do you have trouble paying for medicines?: I choose not to answer this question Do you have trouble getting transportation to medical appointments?: I choose not to answer this question Do you have trouble paying your heating and electricity bill?: Yes Do you have trouble taking care of your child, family member or friend?: No Do you have trouble with day-to-day activities such as bathing, preparing meals, shopping, managing finances, etc.?: No Are you currently unemployed and looking for a job?: No Are you interested in more education?: No Please select the resources that you would like help with: None Currently or been in a relationship where the following occur: No concerns reported THRIVE Score: 1 AUDIT C Alcohol Use Questionnaire (AUDIT-C) 1. How often do you have a drink containing alcohol?: Never 3. How often do you have six or more drinks on one occasion?: Never Total Score: 0 Score Reviewed/Action Taken: Yes ANSHUL-7 AMB Questionnaire ANSHUL-7 Date ANSHUL - 7 assessed: 10/11/24 Feeling nervous, anxious, or on edge: 0 = Not at all Not being able to stop or control worryin = Not at all Worrying too much about different things: 0 = Not at all Trouble relaxin = Not at all Being so restless that it is hard to sit still: 0 = Not at all Becoming easily annoyed or irritable: 1 = Several days Feeling afraid as if something awful might happen: 0 = Not at all Total ANSHUL-7 score (0-4 normal; 5-9 mild; 10-14 moderate; 15-21 severe): 1 Source: Developed by Drs. Justin Mendez, Alma Peterson, Raji Clarke and colleagues, with an educational zaid from [employer]. Review of Systems Const Denies body aches, Denies chills, Denies fever(s), Denies headache(s), Reports lethargy, Reports poor appetite (Improving some) and Reports weight loss Eyes Denies loss of vision ENT Denies dysphagia, Denies dizziness, Denies headache(s) and Denies odynophagia Card Denies chest pain, Denies syncope, Denies edema, Denies irregular heart rhythm, Denies lightheadedness and Denies dyspnea Resp Denies cough and Denies dyspnea GI Reports abdominal pain (Right upper quadrant mostly with foods), Denies constipation, Denies dysphagia, Denies diarrhea, Denies nausea, Denies odynophagia, Denies vomiting and Reports other (Early satiety) Reports no additional complaints Musc Reports no additional complaints and Denies abnormal gait Skin/Breast Reports system reviewed and no additional complaints, except as documented Neuro Denies abnormal gait, Denies dizziness, Denies syncope, Denies headache(s) and Denies loss of vision Psych Reports no additional complaints Physical exam (Primary Care) Vital Signs: Last Vital Signs Temp 97.3 F 12/30/24 08:53 BP 118/82 12/30/24 08:53 Pulse Ox 99 12/30/24 08:53 Oxygen Delivery Method Room Air 12/30/24 08:53 BMI result Body Mass Index 24.7 Tobacco/Smoking Status: Tobacco use Status Tobacco use date assessed 10/11/24 12/30/24 09:00 Patient Tobacco Use Status Never used Tobacco 12/30/24 09:00 e-Cigarette/Vaping Use Never Used 12/30/24 09:00 PHQ-9: PHQ-9 Score PHQ-9: Total score 11 12/30/24 09:32 Depression Screening Interpretation: Positive Depression Screening Follow-up: Follow-up Visit Requested Thrive Assessment: Date of Thrive Assessment Date Thrive assessed 10/11/24 12/30/24 09:00 Currently or been in a relationship where the following occur: No concerns reported Const General: cooperative, healthy appearing, comfortable and no acute distress Orientation/consciousness: patient oriented x3 HENMT Head: Yes normocephalic Ears: hearing grossly normal bilaterally General nose exam: Normal external nose present Mouth: Normal oral and palatal mucosa present Teeth and gingiva: dentition normal Eyes General: appearance normal, both eyes and all related structures Conjunctivae: conjunctivae normal Pupils: Equal, round and reactive pupils present Neck Neck: Yes full ROM and Yes no lymphadenopathy Resp Effort & Inspection: normal respiratory effort Auscultation: clear to auscultation bilaterally, no crackles, no rales, no rhonchi and no wheezes Cardio Rate: regular rate Rhythm: regular rhythm Heart sounds: S1 normal heart sound present and S2 normal heart sound present GI Palpation (GI): Soft to palpation and Tenderness to palpation present (GI) in the RUQ General: Yes no CVA tenderness Back/Spine/Pelvis Back: no CVA tenderness Skin General skin exam: no rashes or lesions noted Neuro General: patient oriented x3 Cranial nerves: Yes CN's II-XII intact bilaterally and Yes Equal, round and reactive pupils present Gait exam (Neuro): Normal gait present Extrem General: Yes normal to inspection, Yes full ROM and No edema Right upper extremity: full ROM Left upper extremity: full ROM Right lower extremity: full ROM; no edema Left lower extremity: full ROM; no edema Psych Affect: normal affect Attitude: cooperative Insight: Good insight present (Psych) Judgement: Good judgement present (Psych) Coding Level of Care Code Est Pt Level 3 (08359) Diagnoses Right upper quadrant abdominal pain R10.11 Weight loss R63.4 Additional Codes PHQ-9 - 52541 - PHQ-9 Billing: Yes ([id number]) Time Spent (min) 29 Assessment & Plan Assessment & Plan (1) Right upper quadrant abdominal pain: Code(s): R10.11 - Right upper quadrant pain Category: Medical Plan: The patient's postprandial right upper quadrant pain and tenderness to palpation of the RUQ raises suspicion for a biliary etiology. An urgent ultrasound of the abdomen will be ordered to assess the gallbladder and other abdominal organs to investigate the cause of her pain. (2) Weight loss: Code(s): R63.4 - Abnormal weight loss Category: Medical Plan: The patient's significant and unintentional 6-pound weight loss since September, but a 30 lbs weight loss since last year. A comprehensive lab workup will be ordered to investigate for underlying systemic causes. An urgent abdominal ultrasound will also be performed to further evaluate for pathology. A follow-up visit is scheduled in 8 weeks to review the results and determine the next steps. Orders: Orders Complete Blood Count Auto Diff Today R63.4 - Abnormal weight loss TSH reflex Free T4 Today R63.4 - Abnormal weight loss UA CC w/rflx Micro + Cult Today R63.4 - Abnormal weight loss CRP High Sensitivity Today R63.4 - Abnormal weight loss Erythrocyte Sedimentation Rate Today R63.4 - Abnormal weight loss Hemoglobin A1c Today R63.4 - Abnormal weight loss Comprehensive [place]. Panel Fast Today R63.4 - Abnormal weight loss HIV Ab/Ag Today R63.4 - Abnormal weight loss Hepatitis A,B,C Profile Today R63.4 - Abnormal weight loss US abdomen limited Today R10.11 - Right upper quadrant pain
--- OUTSIDE RECORDS SUMMARY | 2024-12-30 09:11 | XMS_ITS | Clinical Summary ---
Author Organization [facility] Address [address] [place] [phone] Phone Care Team Providers Care Secondary Teacher Name Role Phone Giovani Leblanc MD Primary Care Provider [phone] Allergies Active Allergy Reactions Criticality Noted Date Comments Warrick Flavor 05/27/2021 Penicillins Low 10/09/2024 Pt states she gets yeast infections and significant discomfort Medications No known medications Encounters Date Type Department Care Team Description 10/09/2024 11:35 AM EDT Ancillary Procedure [facility], [address] [address] Manoj Gomez MD 10/09/2024 11:03 AM EDT - 10/09/2024 1:23 PM EDT Emergency [facility] [address] [place] [id number] Manoj Gomez MD Discharge Disposition: Home or Self Care 10/09/2024 9:50 AM EDT Office Visit [facility] at [address] [address] Sandra Krishnan NP Chest pain, unspecified type [...] (18-6 5 YEARS) 2006 PAP SMEAR 2009 INFLUENZA VACCINE (#1) 2024 COVID-19 VACCINE ( - 2024-2 6 season) 2024 SCREENING FOR DIABETES 10/10/2027 10/09/2024 HEPATITIS A [...] 10/09/2024 12:06 PM EDT BASIC METABOLIC PANEL (BMP) STAT 10/09/2024 12:06 PM EDT CBC AND DIFFERENTIAL STAT 10/09/2024 12:06 PM EDT XR CHEST PA AND LATERAL 2 VIEWS STAT 10/09/2024 11:54 AM EDT ECG 12-LEAD STAT 10/09/2024 11:39 AM EDT US BEDSIDE Routine 10/09/2024 11:31 AM EDT from Last 3 Months Results * COVID Pandemic Respiratory Viral Order (PRO) (10/09/2024 12:16 PM EDT) Test Ordered Rapid COVID has been ordered [facility] Specimen Source/Description NASAL [facility] SARS-CoV 2 (COVID-19) PCR Not Detected Not Detected [facility] Comment: SARS-CoV-2 not detected Negative results do not preclude SARS-CoV-2 infection and should not be used as the sole basis for patient management decisions. Negative results must be combined with clinical observations, patient history, and epidemiological information. Other (Nasopharyngeal swab) 10/09/2024 12:16 PM EDT 10/09/2024 1:11 PM EDT Manoj Gomez MD LAB GENERAL ORDER AZALEA Edited Result - Final [address] [address] * (ABNORMAL) CBC and differential (10/09/2024 12:06 PM EDT) WBC 7.25 4.00 - 11.00 K/uL [facility] RBC 3.88(L) 4.00 - 5.20 M/uL [facility] HGB 11.7(L) 12.0 - 16.0 g/dL [facility] HCT 35.6(L) 36.0 - 46.0 % [facility] PLT 253 150 - 450 K/uL [facility] MCV 91.8 80.0 - 100.0 fL [facility] MCH 30.2 27.0 - 31.0 pg [facility] MCHC 32.9 32.0 - 36.0 g/dL [facility] RDW 13.1 11.5 - 14.5 % [facility] MPV 10.0 8.4 - 12.0 fL [facility] NRBC 0.00 0.00 /100 WBCs [facility] ABSOLUTE NRBC 0.00 0.00 K/uL [facility] DIFF METHOD Auto [facility] NEUTS 69.1 48.0 - 76.0 % [facility] LYMPHS 21.0 18.0 - 41.0 % [facility] MONOS 7.2 4.0 - 11.0 % [facility] EOS 1.8 0.0 - 5.0 % [facility] BASOS 0.6 0.0 - 1.5 % [facility] Granulocytes, immature (%) 0.3 0.0 - 0.9 % [facility] ABSOLUTE NEUTS 5.02 1.92 - 7.60 K/uL [facility] ABSOLUTE LYMPHS 1.52 0.72 - 4.10 K/uL [facility] ABSOLUTE MONOS 0.52 0.16 - 1.10 K/uL [facility] ABSOLUTE EOS 0.13 0.00 - 0.50 K/uL [facility] ABSOLUTE BASOS 0.04 0.00 - 0.15 K/uL [facility] Granulocytes, immature 0.02 0.00 - 0.09 K/uL [facility] Blood 10/09/2024 12:0 6 PM EDT 10/09/2024 12:19 PM EDT Manoj Gomez MD LAB BLOOD BKR ORD ERABLES Final Result [address] [address] * Troponin (10/09/2024 12:06 PM EDT) Troponin-T, HS Gen5 <6 0 - 9 ng/L [facility] Blood 10/09/2024 12:0 6 PM EDT 10/09/2024 12:19 PM EDT Manoj Gomez MD LAB BLOOD BKR ORD ERABLES Final Result [address] [address] * NT-proBNP (10/09/2024 12:06 PM EDT) NT-PROBNP <36 0 - 125 pg/mL [facility] Blood 10/09/2024 12:0 6 PM EDT 10/09/2024 12:19 PM EDT Manoj Gomez MD LAB BLOOD BKR ORD ERABLES Final Result [address] [address] * Basic metabolic panel (10/09/2024 12:06 PM EDT) SODIUM 139 133 - 146 mmol/L [facility] CHLORIDE 104 96 - 108 mmol/L [facility] POTASSIUM 4.1 3.3 - 5.1 mmol/L [facility] CO2 22 21 - 35 mmol/L [facility] BUN 8 6 - 19 mg/dL [facility] CREATININE 0.70 0.5 - 1.5 mg/dL [facility] GLUCOSE 92 70 - 99 mg/dL [facility] CALCIUM 9.6 8.4 - 10.3 mg/dL [facility] EGFR 115 >59 mL/min/1.7 3m2 [facility] Comment:Estimated glomerular filtration rate calculated using the CKD-EPI refit equation. ANION GAP 17 10 - 20 mmol/L [facility] Blood 10/09/2024 12:0 6 PM EDT 10/09/2024 12:19 PM EDT Manoj Gomez MD LAB BLOOD BKR ORD ERABLES Final Result [address] [address] * XR CHEST PA AND LATERAL 2 VIEWS (10/09/2024 11:54 AM EDT) Anatomical Region Laterality Modality Chest Computed Radiogr aphy 10/09/2024 12:0 9 PM EDT Impressions 10/09/2024 12:10 PM EDT No acute abnormality. Narrative 10/09/2024 12:10 PM EDT XR CHEST PA AND LATERAL 2 VIEWS Referring clinician's provided indication for this examination in [facility]: Dyspnea (Shortness of Breath) COMPARISON: None FINDINGS: Devices/Tubes/Lines: None. Lungs: No focal consolidation or pulmonary edema. Pleura: No pleural effusion or pneumothorax. Heart/Mediastinum: Normal heart and mediastinum. Bones/Soft Tissues: No significant abnormality. Procedure Note Heath T[facility] - 10/09/2024 XR CHEST PA AND LATERAL 2 VIEWS Referring clinician's provided indication for this examination in [facility]:Dyspnea (Shortness of Breath) COMPARISON: None FINDINGS: Devices/Tubes/Lines: None. Lungs: No focal consolidation or pulmonary edema. Pleura: No pleural effusion or pneumothorax. Heart/Mediastinum: Normal heart and mediastinum. Bones/Soft Tissues: No significant abnormality. IMPRESSION: No acute abnormality. us Manoj Gomez MD IMG XR CHEST F inal Result * ECG 12-LEAD (10/09/2024 11:39 AM EDT) Ventricular Rate EKG/MIN 60 BPM [facility] Atrial Rate 60 BPM [facility] NJ Interval 132 ms [facility] QRS Duration 98 ms [facility] QT Interval 404 ms [facility] QTC Interval 404 ms [facility] P Parthenon 57 degrees [facility] R Wave Parthenon -18 degrees [facility] T Wave Parthenon 25 degrees [facility] 10/09/2024 11:3 9 AM EDT 10/10/2024 11:50 AM EDT Narrative [facility] - 10/10/2024 11:50 AM EDT Normal sinus rhythm with sinus arrhythmia T wave abnormality, consider lateral ischemia Abnormal ECG No previous ECGs available Confirmed by Aime Tsai ([id number]) on 10/10/2024 11:50:54 AM Manoj Gomez MD ECG ORDERABLES F inal [...] negative Images: Images Saved: Yes Accession Number: [id number] Manoj Gomez MD IMG POINT OF CARE EXAMS Final Result from Last 3 Months Insurance [employer]CO [address] [place] [id number] [place] [address] ACO ACO ACO ACO [facility] ACO Care Teams Secondary Teacher Relationship Specialty Start Date End Date Giovani Leblanc MD [address] [place] [address] [place] [address] PCP - General Internal Medicine 10/09/24 Additional Source Comments The information contained in this document represents components of the legal health record. It is not the complete legal health record.[facility]
--- OUTSIDE RECORDS SUMMARY | 2024-12-30 09:12 | XMS_ITS | Patient Health Record ---
Author Organization Sae Alexander [facility] Address [address] [id number] [place], [place] [id number] Care Team Providers Care Slag Dumper Name Role Phone Crystal Craft Unavailable [phone] Allergies Allergen (clinical drug ingredient) Drug/Non Drug [...] Coverage Start Date Coverage End Date Amilcar ALEXANDER ([facility] [address] [place] [id number] Cameron Bruner Self - patient is the insured Medicaid Wrap [address] [address] [id number] Cameron Bruner Self - patient is the insured Medicaid [address] [id number] Cameron Bruner Self - patient is the insured Medical (General) History Medical History History ICD Code No significant PMHx Surgical History Surgery Date(Month/Year) section 2009 laparoscopic salpingectomy (right ) for an ectopic 08/2013 suction D&C x 3 for ETOP Hospitalization History Reason Date(Month/Year) c-sec 2009 as above.
== END 2024-12-30 09:53 | disposition home or self-care (01) ==
LOC: HO.HMCH 08:47
PROVIDERS: PCP Internal Medicine
DX: R10.11 Right upper quadrant pain (principal); R63.4 Abnormal weight loss

== ENCOUNTER → 2024-12-30 08:46 | Outpatient (BNVA) | payer OTHER, SELFPAY | PROVIDERS: PCP Internal Medicine | DX: R10.11 Right upper quadrant pain (principal); R63.4 Abnormal weight loss | CPT/HCPCS: 96127; 99212 ==

== ENCOUNTER 2024-12-31 10:15 | Outpatient (REF) | payer OTHER, SELFPAY ==
[2024-12-31 10:33] LABS: MANUAL DIFF FLAG NO
[2024-12-31 11:28] LABS: Hematocrit 37.8 % (37.0-47.0); Hemoglobin 12.4 g/dl (12.0-16.0); Imm Gran Abs Auto 0.01 X10*3/uL (0.00-0.03); Imm Gran Pct Auto 0.2 % (0.0-0.4); Lymphocytes Absolute Auto 1.7 X10*3/uL (1.2-4.9); Mean Corpuscular HGB Conc 32.8 g/dl (31.0-35.0); Mean Corpuscular Hemoglobin 30.4 pg (27.0-33.0); Mean Corpuscular Volume 92.6 fL (80.0-98.0); NRBC Abs Auto 0.000 X10*3/uL (0.0-0.012); NRBC Pct Auto 0.0 /100WBC (0.0-0.2); Platelet Count 313 X10*3/uL (160-400); Red Blood Count 4.08 X10*6/uL (4.20-5.50); White Blood Count 6.0 X10*3/uL (4.8-10.8)
[2024-12-31 11:33] LABS: Appearance Urine Clear; Glucose Urine UA Negative (Negative); PH 5.5 (5.0-9.0); Specific Gravity - Urine 1.020 (1.005-1.025); UMIC TRIGGER UACC YES
--- OUTSIDE RECORDS SUMMARY | 2024-12-31 11:48 | XMS_ITS | Clinical Summary ---
Author Organization [facility] Address [address] [facility] [address] [place] [address] Phone Care Team Providers Care Track Surfacing Machine Operator Name Role Phone Giovani Leblanc MD Primary Care Provider [phone] Allergies Active Allergy Reactions Criticality Noted Date Comments Cr[place] Flavor 05/27/2021 Penicillins Low 10/09/2024 Pt states she gets yeast infections and significant discomfort Medications No known medications Encounters Date Type Department Care Team Description 10/09/2024 11:35 AM EDT Ancillary Procedure [facility], [address] [address] Manoj Gomez MD 10/09/2024 11:03 AM EDT - 10/09/2024 1:23 PM EDT Emergency [facility] Emergency [address] [place] [address] Manoj Gomez MD Discharge Disposition: Home or Self Care 10/09/2024 9:50 AM EDT Office Visit [facility] at [address] [address] Sandra Krishnan NP Chest pain, unspecified type [...] 2009 INFLUENZA VACCINE (#1) 2024 COVID-19 VACCINE (2024-2 6 season) 2024 SCREENING FOR DIABETES 10/10/2027 10/09/2024 HEPATITIS A VACCINES Aged Out No long er eligible based on patient's age to complete this topic HIB VACCINES Aged Out No longer eligi ble based on patient's age to complete this topic IPV VACCINES Aged Out No longer eligi ble [...] Test Ordered Rapid COVID has been ordered [facility] Specimen Source/Description NASAL [facility] SARS-CoV 2 (COVID-19) PCR Not Detected Not Detected [facility] Comment: SARS-CoV-2 not detected Negative results do not preclude SARS-CoV-2 infection and should not be used as the sole basis for patient management decisions. Negative results must be combined with clinical observations, patient history, and epidemiological information. Other (Nasopharyngeal swab) 10/09/2024 12:16 PM EDT 10/09/2024 1:11 PM EDT us Manoj Gomez MD LAB GENERAL ORDER AZALEA Edited Result - Final [address] [address] * (ABNORMAL) CBC and differential (10/09/2024 12:06 PM EDT) WBC 7.25 4.00 - 11.00 K/uL [facility] RBC 3.88(L) 4.00 - 5.20 M/uL [facility] HGB 11.7(L) 12.0 - 16.0 g/dL [facility] HCT 35.6(L) 36.0 - 46.0 % [facility] PLT 253 150 - 450 K/uL [facility] MCV 91.8 80.0 - 100.0 fL [facility] MCH 30.2 27.0 - 31.0 pg [facility] MCHC 32.9 32.0 - 36.0 g/dL [facility] RDW 13.1 11.5 - 14.5 % [facility] MPV 10.0 8.4 - 12.0 fL [facility] NRBC 0.00 0.00 /100 WBCs [facility] ABSOLUTE NRBC 0.00 0.00 K/uL [facility] DIFF METHOD Auto [facility] NEUTS 69.1 48.0 - 76.0 % [facility] LYMPHS 21.0 18.0 - 41.0 % [facility] MONOS 7.2 4.0 - 11.0 % [facility] EOS 1.8 0.0 - 5.0 % [facility] BASOS 0.6 0.0 - 1.5 % [facility] Granulocytes, immature (%) 0.3 0.0 - 0.9 % [facility] ABSOLUTE NEUTS 5.02 1.92 - 7.60 K/uL [facility] ABSOLUTE LYMPHS 1.52 0.72 - 4.10 K/uL [facility] ABSOLUTE MONOS 0.52 0.16 - 1.10 K/uL [facility] ABSOLUTE EOS 0.13 0.00 - 0.50 K/uL [facility] ABSOLUTE BASOS 0.04 0.00 - 0.15 K/uL [facility] Granulocytes, immature 0.02 0.00 - 0.09 K/uL [facility] Blood 10/09/2024 12:0 6 PM EDT 10/09/2024 12:19 PM EDT Manoj Gomez MD LAB BLOOD BKR ORD ERABLES Final Result Performing Organization Address [facility]/ZIP Co de Phone Number [address] [address] * Troponin (10/09/2024 12:06 PM EDT) Troponin-T, HS Gen5 <6 0 - 9 ng/L [facility] Blood 10/09/2024 12:0 6 PM EDT 10/09/2024 12:19 PM EDT Manoj Gomez MD LAB BLOOD BKR ORD ERABLES Final Result Performing Organization Address [facility]/ZIP Co de Phone Number [address] [address] * NT-proBNP (10/09/2024 12:06 PM EDT) NT-PROBNP <36 0 - 125 pg/mL [facility] Blood 10/09/2024 12:0 6 PM EDT 10/09/2024 12:19 PM EDT us Manoj Gomez MD LAB BLOOD BKR ORD ERABLES Final Result [address] [address] * Basic metabolic panel (10/09/2024 12:06 PM EDT) SODIUM 139 133 - 146 mmol/L [facility] CHLORIDE 104 96 - 108 mmol/L [facility] POTASSIUM 4.1 3.3 - 5.1 mmol/L [facility] CO2 22 21 - 35 mmol/L [facility] BUN 8 6 - 19 mg/dL [facility] CREATININE 0.70 0.5 - 1.5 mg/dL [facility] GLUCOSE 92 70 - 99 mg/dL [facility] CALCIUM 9.6 8.4 - 10.3 mg/dL [facility] EGFR 115 >59 mL/min/1.7 3m2 [facility] Comment:Estimated glomerular filtration rate calculated using the CKD-EPI refit equation. ANION GAP 17 10 - 20 mmol/L [facility] Blood 10/09/2024 12:0 6 PM EDT 10/09/2024 12:19 PM EDT us Manoj Gomez MD LAB BLOOD BKR ORD ERABLES Final Result [address] [address] * XR CHEST PA AND LATERAL 2 VIEWS (10/09/2024 11:54 AM EDT) Anatomical Region Laterality Modality Chest Computed Radiogr aphy 10/09/2024 12:0 9 PM EDT Impressions 10/09/2024 12:10 PM EDT No acute abnormality. Narrative 10/09/2024 12:10 PM EDT XR CHEST PA AND LATERAL 2 VIEWS Referring clinician's provided indication for this examination in [facility]: Dyspnea (Shortness of Breath) COMPARISON: None FINDINGS: Devices/Tubes/Lines: None. Lungs: No focal consolidation or pulmonary edema. Pleura: No pleural effusion or pneumothorax. Heart/Mediastinum: Normal heart and mediastinum. Bones/Soft Tissues: No significant abnormality. Procedure Note Heath Tuckre, [facility] - 10/09/2024 XR CHEST PA AND LATERAL 2 VIEWS Referring clinician's provided indication for this examination in [facility]:Dyspnea (Shortness of Breath) COMPARISON: None FINDINGS: Devices/Tubes/Lines: None. Lungs: No focal consolidation or pulmonary edema. Pleura: No pleural effusion or pneumothorax. Heart/Mediastinum: Normal heart and mediastinum. Bones/Soft Tissues: No significant abnormality. IMPRESSION: No acute abnormality. Manoj Gomez MD IMG XR CHEST F inal Result * ECG 12-LEAD (10/09/2024 11:39 AM EDT) Ventricular Rate EKG/MIN 60 BPM [facility] Atrial Rate 60 BPM [facility] MT Interval 132 ms [facility] QRS Duration 98 ms [facility] QT Interval 404 ms [facility] QTC Interval 404 ms [facility] P [place] 57 degrees [facility] R Wave [place] -18 degrees [facility] T Wave [place] 25 degrees [facility] 10/09/2024 11:3 9 AM [...] negative Images: Images Saved: Yes Accession Number: [id number] us Manoj Gomez MD IMG POINT OF CARE EXAMS Final Result from Last 3 Months Insurance [address]CO [address] [place] [id number] [place] [address] [place] [address] [place] [address] [address] [place] [id number] [facility] ACO Care Teams Track Surfacing Machine Operator Relationship Specialty Start Date End Date Giovani Leblanc MD [address] [place] [address] [place] [address] PCP - General Internal Medicine 10/09/24 Additional Source Comments The information contained in this document represents components of the legal health record. It is not the complete legal health record.[facility]
--- OUTSIDE RECORDS SUMMARY | 2024-12-31 11:48 | XMS_ITS | Patient Health Record ---
Author Organization [facility] Address [address] [id number] [place], [place] [id number] Care Team Providers Care Transportation Broker Name Role Phone Crystal Craft Unavailable [phone] Allergies Allergen (clinical drug ingredient) Drug/Non Drug [...] Start Date Coverage End Date Amilcar ALEXANDER ([facility] [place] [address] [place] [address] [id number] Cameron Bruner Self - patient is the insured Medicaid Wrap [address] [address] [phone] [id number] Cameron Bruner Self - patient is the insured Medicaid [address] [id number] Cameron Bruner Self - patient is the insured Medical (General) History Medical History History ICD Code No significant PMHx Surgical History Surgery Date(Month/Year) section 2009 laparoscopic salpingectomy (right ) for an ectopic 08/2013 suction D&C x 3 for ETOP Hospitalization History Reason Date(Month/Year) c-sec 2009 as above.
[2024-12-31 12:15] LABS: Alanine Aminotransferase 16 U/L (0-31); Albumin Level 4.6 g/dL (3.5-5.0); Alkaline Phosphatase 51 U/L (39-117); Anion Gap 11 (12-20); Aspartate Amino Transferase 22 U/L (5-31); Blood Urea Nitrogen 10 mg/dL (9-16); Calcium 9.4 mg/dL (8.4-10.2); Carbon Dioxide 23 mmol/L (22-29); Chloride 108 mmol/L (96-108); Estimated Glomerular Filt Rate > 60; Potassium 4.2 mmol/L (3.3-5.1); Sodium 138 mmol/L (135-145); Total Protein 8.0 g/dL (6.5-8.0)
[2024-12-31 12:39] LABS: HBS Num1 31.82 mIU/mL (0-7.99); HBc Num1 0.09 S/CO (0.00-0.79); HBsAGNum1 0.38 S/CO (0.00-0.99); HIV Num 1 0.06 S/CO (0.00-0.99); Hepatitis A Antibody IgM 0.15 Index (0-0.79); Hepatitis B Surface Antigen Negative (Negative); ~HepC Num1 0.12 S/CO (0.00-0.79); ~Hepatitis A Antibody IgM Nonreactive (Nonreactive); ~Hepatitis B Surface Antibody REACTIVE (Nonreactive); ~Hepatitis C Antibody Nonreactive (Nonreactive)
== END 2024-12-31 10:16 | disposition home or self-care (01) ==
LOC: HO.LAB 10:15
PROVIDERS: PCP Internal Medicine
DX: Z11.59 Encounter for screening for other viral diseases (principal); Z11.4 Encounter for screening for human immunodeficiency virus [HIV]; R63.4 Abnormal weight loss; Z20.6 Contact with and (suspected) exposure to human immunodeficiency virus [HIV]
CPT/HCPCS: 36415; 80053; 81001; 83036; 84443; 85025; 85652; 86141; 86704; 86706; 86709; 86803; 87340; 87389

== ENCOUNTER 2025-01-09 08:06 | Outpatient (REF) | payer OTHER, SELFPAY ==
--- NOTE | ~2025-01-09 | US_ITS ---
CLINICAL HISTORY: R10.11 - Right upper quadrant pain US abdomen limited Comparison: None provided Findings: The visualized aorta, and inferior vena cava are unremarkable. The pancreas is normal. The liver is mildly small, right lobe length is 12.2 cm. Normal in echogenicity, no discrete lesion is visualized in the imaged liver. No bile duct dilatation. Common duct 2 mm diameter. Physiologic distention of the gallbladder, shadowing mobile stones up to 2 cm noted, no gallbladder wall thickening, gallbladder fold near the neck, per ultrasound worksheet: Patient is tender in the area of the gallbladder. Main portal vein shows antegrade flow. Right kidney normal, 9.2 cm in length. No free fluid in the right upper quadrant of the abdomen. Impression: Cholelithiasis, ultrasound worksheet indicates that patient is tender in area of gallbladder but not specifically confirm or exclude sonographic Allen's sign, interpreting radiologist is not present during the exam, if there is positive sonographic or clinical Allen's sign, early acute cholecystitis is possible, please correlate clinically. This document has been electronically signed by: Jessica Villegas MD on 01/09/2025 14:16:05
--- OUTSIDE RECORDS SUMMARY | 2025-01-09 08:28 | XMS_ITS | Clinical Summary ---
Author Organization [facility] Address [address] [facility] [address] [place] [address] Phone Care Team Providers Care Parts Clerk Plant Maintenance Name Role Phone Giovani Leblanc MD Primary Care Provider [phone] Allergies Active Allergy Reactions Criticality Noted Date Comments [place] Flavor 05/27/2021 Penicillins Low 10/09/2024 Pt states she gets yeast infections and significant discomfort Medications No known medications Encounters Date Type Department Care Team Description 10/09/2024 11:35 AM EDT Ancillary Procedure [facility], [address] [address] Manoj Gomez MD 10/09/2024 11:03 AM EDT - 10/09/2024 1:23 PM EDT Emergency [facility] Emergency [address] [place] [address] Manoj Gomez MD Discharge Disposition: Home or Self Care 10/09/2024 9:50 AM EDT Office Visit [facility] Urgent Care at [address] [address] Sandra Krishnan NP Chest pain, unspecified type [...] Test Ordered Rapid COVID has been ordered [facility] Specimen Source/Description NASAL [facility] SARS-CoV 2 (COVID-19) PCR Not Detected Not Detected [facility] Comment: SARS-CoV-2 not detected Negative results do not preclude SARS-CoV-2 infection and should not be used as the sole basis for patient management decisions. Negative results must be combined with clinical observations, patient history, and epidemiological information. Other (Nasopharyngeal swab) 10/09/2024 12:16 PM EDT 10/09/2024 1:11 PM EDT us Manoj Gomez MD LAB GENERAL ORDER AZALEA Edited Result - Final [address] [address] * (ABNORMAL) CBC and differential (10/09/2024 12:06 PM EDT) WBC 7.25 4.00 - 11.00 K/uL [facility] RBC 3.88(L) 4.00 - 5.20 M/uL [facility] HGB 11.7(L) 12.0 - 16.0 g/dL [facility] HCT 35.6(L) 36.0 - 46.0 % [facility] PLT 253 150 - 450 K/uL [facility] MCV 91.8 80.0 - 100.0 fL [facility] MCH 30.2 27.0 - 31.0 pg [facility] MCHC 32.9 32.0 - 36.0 g/dL [facility] RDW 13.1 11.5 - 14.5 % [facility] MPV 10.0 8.4 - 12.0 fL [facility] NRBC 0.00 0.00 /100 WBCs [facility] ABSOLUTE NRBC 0.00 0.00 K/uL [facility] DIFF METHOD Auto [facility] NEUTS 69.1 48.0 - 76.0 % [facility] LYMPHS 21.0 18.0 - 41.0 % [facility] MONOS 7.2 4.0 - 11.0 % [facility] EOS 1.8 0.0 - 5.0 % [facility] BASOS 0.6 0.0 - 1.5 % [facility] Granulocytes, immature (%) 0.3 0.0 - 0.9 % [facility] ABSOLUTE NEUTS 5.02 1.92 - 7.60 K/uL [facility] ABSOLUTE LYMPHS 1.52 0.72 - 4.10 K/uL [facility] ABSOLUTE MONOS 0.52 0.16 - 1.10 K/uL [facility] ABSOLUTE EOS 0.13 0.00 - 0.50 K/uL [facility] ABSOLUTE BASOS 0.04 0.00 - 0.15 K/uL [facility] Granulocytes, immature 0.02 0.00 - 0.09 K/uL [facility] Blood 10/09/2024 12:0 6 PM EDT 10/09/2024 12:19 PM EDT Manoj Gomez MD LAB BLOOD BKR ORD ERABLES Final Result Performing Organization Address [facility]/ZIP Co de Phone Number [address] [address] * Troponin (10/09/2024 12:06 PM EDT) Troponin-T, HS Gen5 <6 0 - 9 ng/L [facility] Blood 10/09/2024 12:0 6 PM EDT 10/09/2024 12:19 PM EDT Manoj Gomez MD LAB BLOOD BKR ORD ERABLES Final Result Performing Organization Address [facility]/ZIP Co de Phone Number [address] [address] * NT-proBNP (10/09/2024 12:06 PM EDT) NT-PROBNP <36 0 - 125 pg/mL [facility] Blood 10/09/2024 12:0 6 PM EDT 10/09/2024 12:19 PM EDT Manoj Gomez MD LAB BLOOD BKR ORD ERABLES Final Result [address] [address] * Basic metabolic panel (10/09/2024 12:06 PM EDT) SODIUM 139 133 - 146 mmol/L [facility] CHLORIDE 104 96 - 108 mmol/L [facility] POTASSIUM 4.1 3.3 - 5.1 mmol/L [facility] CO2 22 21 - 35 mmol/L [facility] BUN 8 6 - 19 mg/dL [facility] CREATININE 0.70 0.5 - 1.5 mg/dL [facility] GLUCOSE 92 70 - 99 mg/dL [facility] CALCIUM 9.6 8.4 - 10.3 mg/dL [facility] EGFR 115 >59 mL/min/1.7 3m2 [facility] Comment:Estimated glomerular filtration rate calculated using the CKD-EPI refit equation. ANION GAP 17 10 - 20 mmol/L [facility] Blood 10/09/2024 12:0 6 PM EDT 10/09/2024 12:19 PM EDT us Manoj Gomez MD LAB BLOOD BKR ORD ERABLES Final Result [address] [address] * XR CHEST PA AND LATERAL 2 VIEWS (10/09/2024 11:54 AM EDT) Anatomical Region Laterality Modality Chest Computed Radiogr aphy 10/09/2024 12:0 9 PM EDT Impressions 10/09/2024 12:10 PM EDT No acute abnormality. Narrative 10/09/2024 12:10 PM EDT XR CHEST PA AND LATERAL 2 VIEWS Referring clinician's provided indication for this examination in [facility]: Dyspnea (Shortness of Breath) COMPARISON: None FINDINGS: Devices/Tubes/Lines: None. Lungs: No focal consolidation or pulmonary edema. Pleura: No pleural effusion or pneumothorax. Heart/Mediastinum: Normal heart and mediastinum. Bones/Soft Tissues: No significant abnormality. Procedure Note Heath Tucker, [facility] - 10/09/2024 XR CHEST PA AND LATERAL 2 VIEWS Referring clinician's provided indication for this examination in [facility]:Dyspnea (Shortness of Breath) COMPARISON: None FINDINGS: Devices/Tubes/Lines: None. Lungs: No focal consolidation or pulmonary edema. Pleura: No pleural effusion or pneumothorax. Heart/Mediastinum: Normal heart and mediastinum. Bones/Soft Tissues: No significant abnormality. IMPRESSION: No acute abnormality. Manoj Gomez MD IMG XR CHEST F inal Result * ECG 12-LEAD (10/09/2024 11:39 AM EDT) Ventricular Rate EKG/MIN 60 BPM [facility] Atrial Rate 60 BPM [facility] OR Interval 132 ms [facility] QRS Duration 98 ms [facility] QT Interval 404 ms [facility] QTC Interval 404 ms [facility] P [place] 57 degrees [facility] R Wave [place] -18 degrees [facility] T Wave [place] 25 degrees [facility] 10/09/2024 11:3 9 AM [...] Date/Time: 10/09/2024 11:31 AM Performed by: Manoj Gomze MD Authorized by: Manoj Gomez MD Exam [...] negative Images: Images Saved: Yes Accession Number: [id number] us Manoj Gomez MD IMG POINT OF CARE EXAMS Final Result from Last 3 Months Insurance ACO [address] [place] [id number] [place] [address] [place] [address] [place] [address] [address] [place] [id number] [facility] ACO Care Teams Parts Clerk Plant Maintenance Relationship Specialty Start Date End Date Giovani Leblanc MD [address] [place] [address] [place] [address] PCP - General Internal Medicine 10/09/24 Additional Source Comments The information contained in this document represents components of the legal health record. It is not the complete legal health record.[facility]
--- OUTSIDE RECORDS SUMMARY | 2025-01-09 08:28 | XMS_ITS | Patient Health Record ---
Author Organization [facility] Address [address] [id number] [place], [place] [id number] Care Team Providers Care Video Game Script Writer Name Role Phone Crystal Craft Unavailable [phone] Allergies Allergen (clinical drug ingredient) Drug/Non Drug [...] Start Date Coverage End Date Amilcar ALEXANDER ([facility] [address] [place] [address] [phone] [id number] Cameron Bruner Self - patient is the insured Medicaid Wrap [address] [address] [id number] Cameron Bruner Self - patient is the insured Medicaid [address] [id number] Cameron Bruner Self - patient is the insured Medical (General) History Medical History History ICD Code No significant PMHx Surgical History Surgery Date(Month/Year) section 2009 laparoscopic salpingectomy (right ) for an ectopic 08/2013 suction D&C x 3 for ETOP Hospitalization History Reason Date(Month/Year) c-sec 2009 as above.
== END 2025-01-09 08:07 | disposition home or self-care (01) ==
LOC: HO.US 08:06
PROVIDERS: PCP Internal Medicine
DX: R10.11 Right upper quadrant pain (principal)
CPT/HCPCS: 76705

== ENCOUNTER → 2025-01-09 08:08 | Outpatient (BNV) | payer OTHER, SELFPAY | PROVIDERS: PCP Internal Medicine; Visit Provider Radiology Diagnostic Radiology | DX: R10.11 Right upper quadrant pain (principal) | CPT/HCPCS: 76705 ==